=== PATIENT | male | born 1970 | race Caucasian/White ===

== ENCOUNTER 2020-10-27 18:02 | Inpatient (IN) | payer MEDICAID ==
[~2020-10-27] VITALS: Ht 167.6 cm; Wt 85.3 kg
[2020-10-27 18:15] VITALS: BP 155/95
--- NOTE | 2020-10-27 19:25 | NUR ---
SEEN AND EXAMINED BY SONU WITH ORDERS AND CARRIED OUT
--- NOTE | 2020-10-27 19:31 | NUR ---
PT W/C ASSISTED TO BED #6
--- NOTE | 2020-10-27 19:35 | NUR ---
PT. IS A 50 Y/O MALE THAT CAME INTO ED WITH C/O OF ABDOMINAL DISTENTION. PT. STATES THAT IT STARTED A WEEK AGO. DENIES N/V/D/FEVER. PT. ALSO STATES HE HAS DARK STOOLS. PT. SKIN COLOR IS JAUNDICED. PT. DENIES ANY PAIN AT THIS TIME. DENIES N/V/D; AAOX4 WITH EVEN AND STEADY GAIT; HR EVEN AND REGULAR; PT DENIES ANY FEVER, CP, SOB, OR COUGH AT THIS TIME; VSS; PATIENT POSITIONED FOR COMFORT; HOB ELEVATED; BEDRAILS UP X2; BED DOWN. ER MD MADE AWARE OF PT STATUS. PMH: DENIES ALLERGIES: NKA
--- NOTE | 2020-10-27 19:40 | NUR ---
LABS DRAWN AND HANDED TO CORTES FROM LAB
--- NOTE | 2020-10-27 19:45 | NUR ---
XRAY AT BEDSIDE
[2020-10-27 19:56] LABS: BASOPHILS % (AUTO) 0.3 % (0.0-2.0); EOSINOPHILS # (AUTO) 0.1 K/uL (0-0.4); EOSINOPHILS % (AUTO) 0.9 % (0.0-4.0); HEMATOCRIT 27.5 % (36-52); HEMOGLOBIN 9.8 g/dL (12.0-18.0); LYMPHOCYTES # (AUTO) 1.4 K/uL (2.0-11.5); LYMPHOCYTES % (AUTO) 15.9 % (20.5-51.1); MEAN CORPUSCULAR HEMOGLOBIN 41 pg (27-31); MEAN CORPUSCULAR HGB CONC 36 g/dL (33-37); MEAN CORPUSCULAR VOLUME 116.4 fL (80-94); MONOCYTES # (AUTO) 1.4 K/uL (0.8-1.0); MONOCYTES % (AUTO) 15.1 % (1.7-9.3); NEUTROPHILS # (AUTO) 6.2 K/uL (1.8-7.7); NEUTROPHILS % (AUTO) 67.8 % (42.2-75.2); PLATELET COUNT (AUTO) 147 K/uL (140-450); RED BLOOD CELL COUNT(AUTO) 2.36 MIL/uL (4.20-6.10); RED CELL DISTRIBUTION WIDTH 14.3 % (11.6-13.7); WHITE BLOOD COUNT (AUTO) 9.1 K/uL (4.8-10.8)
--- NOTE | 2020-10-27 20:00 | NUR ---
PT. ASKED TO GIVE URINE FOR SAMPLE, PT. STATES "I CAN'T GO RIGHT NOW YET. " SON AT BEDSIDE
[2020-10-27 20:09] LABS: ALBUMIN 1.9 g/dL (3.4-5.0); BILIRUBIN,DIRECT 11.7 mg/dL (0.0-0.3)
[2020-10-27 20:21] LABS: ANION GAP 11.6 (8-16); CARBON DIOXIDE 24.1 mmol/L (21-32); CREATININE 0.8 mg/dL (0.6-1.3); POTASSIUM 4.7 mmol/L (3.5-5.1)
[2020-10-27 20:24] LABS: PROTHROMBIN TIME 20.3 secs (10.8-13.4)
[2020-10-27] MEDS ORDERED: ACETAMINOPHEN 325 MG TAB PO PRN (21:00)
[2020-10-27] MEDS ORDERED: HYDROcodone/APAP 7.5/325 MG 1 TAB PO PRN (21:00)
[2020-10-27] MEDS ORDERED: ZOLPIDEM 5 MG TAB PO PRN (21:00)
[2020-10-27] MEDS ORDERED: ONDANSETRON 4 MG/2 ML VIAL IM/IVP PRN (21:00)
[2020-10-27] MEDS ORDERED: POTASSIUM CHLORIDE 10 MEQ TABER PO PRN (21:00)
[2020-10-27] MEDS ORDERED: guaiFENesin DM 200/20 MG-10 ML 10 ML UDC PO PRN (21:00)
[2020-10-27] MEDS ORDERED: NACL 3% 500 ML IV ONE (21:05)
--- NOTE | 2020-10-27 21:18 | NUR ---
Dr. Peralta examining patient.
--- NOTE | 2020-10-27 21:37 | NUR ---
ULTRASOUND AT BEDSIDE
[2020-10-27 21:56] LABS: CHOL/HDL RATIO 2.6 (1-4.5); FREE T4 (FREE THYROXINE) 1.27 ng/dL (0.76-1.46); MAGNESIUM 1.9 mg/dL (1.8-2.4); PHOSPHORUS 3.2 mg/dL (2.5-4.9); THYROID STIMULATING HORMONE 1.95 uIU/mL (0.34-3.74)
--- NOTE | 2020-10-27 22:05 | NUR ---
PT. TAKEN TO BATHROOM VIA W/C FOR URINE COLLECTION.
--- NOTE | 2020-10-27 22:05 | NUR ---
URINE COLLECTION WALKED TO LAB, HANDED TO ESA
--- NOTE | 2020-10-27 22:19 | NUR ---
TRIED TO CALL REPORT TO DILMA ORANTES (ICU). NIKITA STATES RN IN BATHROOM AT THIS TIME. TO CALL BACK IN 5 MINS.
[2020-10-27 22:27] LABS: APPEARANCE,URINE SL CLOUDY (CLEAR); BILIRUBIN,URINE 3+ (NEGATIVE); BLOOD, URINE NEGATIVE (NEGATIVE); COLOR,URINE BROWN (YELLOW); LEUKOCYTE ESTERASE ,URINE TRACE (NEGATIVE); NITRITE, URINE POSITIVE (NEGATIVE); PH,URINE 6.5 (5.0-9.0); UGLUCOSE TRACE (NEGATIVE)
--- NOTE | 2020-10-27 22:30 | NUR ---
SON (DANNA CORDERO) ASKED TO BE UPDATED REGARDING ANY CHANGES WITH FATHER. PHONE #:
--- NOTE | 2020-10-27 22:35 | NUR ---
Patient will be admitted to care of DR. ORTIZ. Admitted to ICU. PT. TAKEN TO ROOM ICU BED 5, ACCOMPANIED BY EMT AND RN. Belongings list completed. Report to DILMA ORANTES.
[2020-10-27 22:37] LABS: RBC,URINE 0-5 /HPF (0-5); WBC,URINE 0-5 /HPF (0-5)
[2020-10-27 22:39] LABS: BARBITURATE, URINE NEGATIVE ng/ml (NEG <=200); BENZODIAZEPINE, URINE NEGATIVE ng/mL (NEG <=200); CANNABINOID, URINE NEGATIVE ng/mL (NEG <=50); COCAINE, URINE NEGATIVE ng/mL (NEG <=300); OPIATE, URINE NEGATIVE ng/mL (NEG <=2000); PHENCYCLIDINE SCREEN,URINE NEGATIVE ng/mL (NEG <=25)
--- NOTE | 2020-10-27 22:40 | NUR ---
RECEIVED PT FROM ER VIA [facility].PT ABLE TO TRANSFER TO BED.PT ALERT AND ORIENTED X4.DIVEHI SPEAKING; ABLE TO UNDERSTAND SIMPLE DANISH.SR ON MONITOR.ON ROOM AIR.DENIES SOB.NO COUGHING NOTED.PERIPHERAL IV TO RT AC G18 INTACT, INFUSING NACL 3% AT 40ML/HR ORDERED.ABDOMINAL DISTENTION NOTED.ABDOMEN SOFT NON TENDER.EDEMA TO BLE FROM THIGH DOWN TO THE FEET PITTING +3.BOTH FEET DORSALIS PEDIS PULSE APPRECIATED.PENILE EDEMA ALSO NOTED.SKIN INTACT.PT DENIES PAIN
[2020-10-27 22:45] VITALS: BP 146/86
--- NOTE | 2020-10-27 23:00 | NUR ---
PTS SON JENIFFER AT BEDSIDE; UPDATED ON PTS PRESENT CONDITION.QUESTIONS ANSWERED
[2020-10-28] VITALS (17 sets, daily range): BP systolic 104–152; BP diastolic 56–96
--- NOTE | 2020-10-28 00:09 | NUR ---
LAB AT BEDSIDE. PT STILL AWAKE WATCHING TV; BOTH FEET ELEVATED WITH PILLOWS.CALL LIGHT WITHIN REACH.PT STILL DENIES PAIN
[2020-10-28 00:31] LABS: CARBON DIOXIDE 27.6 mmol/L (21-32); CREATININE 0.7 mg/dL (0.6-1.3); POTASSIUM 4.6 mmol/L (3.5-5.1)
--- NOTE | 2020-10-28 02:00 | NUR ---
PT ASLEEP;EASILY AROUSABLE.DENIES SOB.DENIES PAIN
--- NOTE | 2020-10-28 04:27 | NUR ---
PTS CONDITION REMAINS UNCHANGED.PT ABLE TO REPOSITION SELF.ASLEEP AT THIS TIME.NO S/SX OF RESPIRATORY DISTRESS.NO PAIN NOTED.WILL CONTINUE TO CLOSELY MONITOR PT
[2020-10-28 06:09] LABS: ANION GAP 9.5 (8-16); CARBON DIOXIDE 25.3 mmol/L (21-32); CREATININE 0.7 mg/dL (0.6-1.3); POTASSIUM 4.8 mmol/L (3.5-5.1)
--- NOTE | 2020-10-28 06:10 | NUR ---
PT AWAKE; VOIDED 130ML OF DARK ESTUARDO COLORED URINE.ABLE TO REPOSITION SELF.DENIES SOB.ABDOMINAL DISTENSION STILL NOTED.PT DENIES PAIN.
[2020-10-28 06:17] LABS: BASOPHILS # (AUTO) 0.1 K/uL (0.00-0.22); BASOPHILS % (AUTO) 0.6 % (0.0-2.0); EOSINOPHILS # (AUTO) 0.2 K/uL (0-0.4); EOSINOPHILS % (AUTO) 2.1 % (0.0-4.0); HEMATOCRIT 24.7 % (36-52); HEMOGLOBIN 8.8 g/dL (12.0-18.0); LYMPHOCYTES # (AUTO) 1.4 K/uL (2.0-11.5); LYMPHOCYTES % (AUTO) 14.6 % (20.5-51.1); MEAN CORPUSCULAR HEMOGLOBIN 41 pg (27-31); MEAN CORPUSCULAR HGB CONC 36 g/dL (33-37); MEAN CORPUSCULAR VOLUME 114.9 fL (80-94); MONOCYTES # (AUTO) 1.4 K/uL (0.8-1.0); NEUTROPHILS # (AUTO) 6.3 K/uL (1.8-7.7); NEUTROPHILS % (AUTO) 67.7 % (42.2-75.2); PLATELET COUNT (AUTO) 117 K/uL (140-450); RED BLOOD CELL COUNT(AUTO) 2.15 MIL/uL (4.20-6.10); RED CELL DISTRIBUTION WIDTH 14.4 % (11.6-13.7); WHITE BLOOD COUNT (AUTO) 9.4 K/uL (4.8-10.8)
--- NOTE | 2020-10-28 07:26 | NUR ---
RECEIVED CRITICAL LAB FOR SODIUM 119, NOT REPORTED, IMPROVING. PRIMARY RN CHRIS MADE AWARE.
--- NOTE | 2020-10-28 07:29 | NUR ---
RECEIVED BEDSIDE REPORT .PT SLEEPING, AROUSES TO VOICE, ORIENTED X4.SAMI SPEAKING; ABLE TO UNDERSTAND SIMPLE CZECH.SR ON MONITOR.ON ROOM AIR.DENIES SOB.NO COUGHING NOTED.PERIPHERAL IV TO RT AC G18 INTACT, INFUSING NACL 3% AT 40ML/HR ORDERED.ABDOMINAL DISTENTION NOTED.ABDOMEN SOFT NON TENDER.EDEMA TO BLE FROM THIGH DOWN TO THE FEET PITTING +3.BOTH FEET DORSALIS PEDIS PULSE APPRECIATED.PENILE EDEMA ALSO NOTED.SKIN INTACT.PT DENIES PAIN, PLAN OF CARE REVIEWED, NO IMMEDIATE NEEDS VOICED AT THIS TIME.
--- NOTE | 2020-10-28 08:15 | NUR ---
PT'S SON ZOROASTRIANISM ARRIVED TO BEDSIDE
--- NOTE | 2020-10-28 08:24 | NUR ---
PATIENT HAS BEEN SCREENED AND CATEGORIZED HIGH NUTRITION RISK. PATIENT WILL BE SEEN WITHIN 1-2 DAYS OF ADMISSION. 10/28/20-10/29/[address]
[2020-10-28] MEDS: PANTOPRAZOLE 40 MG TABEC PO SCH (09:01)
--- NOTE | 2020-10-28 09:25 | NUR ---
DR ORTIZ AT BEDSIDE, CONDITION AND PLAN OF CARE DISCUSSED WITH PT AND HIS SON
[2020-10-28] MEDS ORDERED: NACL 3% 500 ML IV SCH (10:00)
--- NOTE | 2020-10-28 12:02 | NUR ---
VOIDED IN URINAL 75ML DARK ESTUARDO
--- NOTE | 2020-10-28 12:06 | NUR ---
DR MONTANA AT BEDSIDE, 3% SODIUM DC'D PER DR MONTANA.
[2020-10-28] MEDS: ALBUMIN HUMAN 25% 100 ML IV SCH ×2 (13:10→21:19)
--- NOTE | 2020-10-28 13:11 | NUR ---
SCHEDULED ALBUMIN ADMINISTERED PER DR MONTANA ORDER, MED EDUCATION PROVIDED, REINFORCEMENT NEEDED. PATIENT IS AWAKE AND WATCHING TV ON BED. DENIED OF ANY DISTRESS. SAFETY MEASURES IN PLACE.
[2020-10-28 13:25] LABS: ANION GAP 7.1 (8-16); CARBON DIOXIDE 26.6 mmol/L (21-32); CREATININE 0.8 mg/dL (0.6-1.3); POTASSIUM 4.7 mmol/L (3.5-5.1)
--- NOTE | 2020-10-28 13:27 | NUR ---
CRITICAL LAB NA 119, STAYED THE SAME.
--- NOTE | 2020-10-28 13:35 | NUR ---
PAGED DR. KELLY FOR CRITICAL LAB. AWAITING CALL BACK. WILL CONTINUE TO MONITOR.
--- NOTE | 2020-10-28 14:12 | NUR ---
DC PLANNIN YRS OLD MALE PATIENT WAS ADMITTED FROM HOME WITH A DX OF HYPONATREMIA, ANASARCA. PT HAS NO MEDICAL HISTORY. CXR SHOWED UNDER EXPANDED LUNGS , PROBABLE RIGHT LUNG BASE ATELECTASIS RAPID COVID TEST NEGATIVE. ABDOMINAL ULTRASOUND SHOWED NODULAR HETEROGENOUS LIVER SUGGESTING CIRRHOSIS. SODIUM LEVEL 116, ADMINISTERED 3% IV AND CONTINUE HOME MEDS . CONSULTED WITH NEPHRO, AND PULMO. DC PLAN TO GO HOME WHEN STABLE. CM TO FOLLOW
--- NOTE | 2020-10-28 14:50 | NUR ---
PT C/O NAUSEA AFTER EATING LUNCH, EMESIS X1, ZOFRAN GIVEN PER PRN ORDER
--- NOTE | 2020-10-28 15:15 | NUR ---
DR NORTH AT BEDSIDE FOR EVAL, CONDITION AND PLAN OF CARE DISCUSSED WITH PT AND PT'S SON AT BEDSIDE
--- NOTE | 2020-10-28 15:20 | NUR ---
PT REPORTS NAUSEA RESOLVED AND FEEDING BETTER, WANTS TO SIT AT SIDE OF BED FOR COMFORT, ASSISTED BY HIS SON TO STAND AT BEDSIDE, PT DENIES FEEDING DIZZY OR LIGHTHEADED, STEADY ON HIS FEET, BED LINEN CHANGED, PT RETURNED TO BED WITH MINIMAL ASSIST.
[2020-10-28 16:19] LABS: BILIRUBIN,URINE 3+ (NEGATIVE); BLOOD, URINE NEGATIVE (NEGATIVE); LEUKOCYTE ESTERASE ,URINE TRACE (NEGATIVE); NITRITE, URINE POSITIVE (NEGATIVE); PH,URINE 5.5 (5.0-9.0); UGLUCOSE 1+ (NEGATIVE)
[2020-10-28 16:21] LABS: CARBON DIOXIDE 25.5 mmol/L (21-32); CREATININE 0.9 mg/dL (0.6-1.3); POTASSIUM 4.5 mmol/L (3.5-5.1)
[2020-10-28 16:24] LABS: APPEARANCE,URINE HAZY (CLEAR); COLOR,URINE AMBER (YELLOW)
--- NOTE | 2020-10-28 16:30 | NUR ---
REPEAT LAB RESULTED, NA 118, DR MONTANA NOTIFIED, NO NEW ORDERS AT THIS TIME.
[2020-10-28 16:36] LABS: RBC,URINE NONE SEEN /HPF (0-5); WBC,URINE 0-5 /HPF (0-5)
--- NOTE | 2020-10-28 18:15 | NUR ---
PT SITTING UP EATING DINNER, NO DISTRESS NOTED, DENIES ANY NEEDS.
--- NOTE | 2020-10-28 19:15 | NUR ---
received report from Kaela PERERA. pt currently a/o x 4, gcs 15. able to move all extremities freely. pt is a 50 year old male coming from home with hx of alcoholic cirrhosis for increased abdominal distention. pt is dx of hyponatremia and anasarca. currently pt denies any pain. states has not had a BM since 10/27/20. denies any pain upon palpation of ABD. abd appears and large and rounded. normoactive bowel sounds heard on all quads. currently IV in place on RAC, patent with brisk blood return. NAD at this time.
--- NOTE | 2020-10-28 19:49 | NUR ---
XR at bedside.
[2020-10-28 20:58] LABS: CREATININE,URINE RANDOM 253 mg/dL (30-125); URINE SODIUM, RANDOM 5 mmol/l (40-220)
--- NOTE | 2020-10-28 21:44 | NUR ---
NAD at this time. pt currently asleep, arousable via verbal stimuli. currently laying on left lateral position. VSS
[2020-10-28 22:24] LABS: ANION GAP 7.4 (8-16); CARBON DIOXIDE 26.1 mmol/L (21-32); CREATININE 0.9 mg/dL (0.6-1.3); POTASSIUM 4.5 mmol/L (3.5-5.1)
--- NOTE | 2020-10-28 22:57 | NUR ---
pt remains asleep this time. arousable via verbal stimuli. NAD
[2020-10-29] VITALS (16 sets, daily range): BP systolic 119–149; BP diastolic 61–100
[2020-10-29 00:29] LABS: ANION GAP 8.6 (8-16); CARBON DIOXIDE 24.8 mmol/L (21-32); CREATININE 0.8 mg/dL (0.6-1.3); POTASSIUM 4.4 mmol/L (3.5-5.1)
--- NOTE | 2020-10-29 03:15 | NUR ---
NAD at this time. pt appears calm and sleeping. visible chest rise and fall. positioned in right lateral position.
[2020-10-29 04:17] LABS: BASOPHILS # (AUTO) 0.1 K/uL (0.00-0.22); BASOPHILS % (AUTO) 1.3 % (0.0-2.0); EOSINOPHILS # (AUTO) 0.2 K/uL (0-0.4); EOSINOPHILS % (AUTO) 2.5 % (0.0-4.0); HEMATOCRIT 23.2 % (36-52); HEMOGLOBIN 8.2 g/dL (12.0-18.0); LYMPHOCYTES # (AUTO) 1.6 K/uL (2.0-11.5); LYMPHOCYTES % (AUTO) 20.6 % (20.5-51.1); MEAN CORPUSCULAR HEMOGLOBIN 41 pg (27-31); MEAN CORPUSCULAR HGB CONC 35 g/dL (33-37); MEAN CORPUSCULAR VOLUME 116.4 fL (80-94); MONOCYTES # (AUTO) 1.1 K/uL (0.8-1.0); NEUTROPHILS # (AUTO) 4.9 K/uL (1.8-7.7); NEUTROPHILS % (AUTO) 61.6 % (42.2-75.2); PLATELET COUNT (AUTO) 98 K/uL (140-450); RED BLOOD CELL COUNT(AUTO) 1.99 MIL/uL (4.20-6.10); RED CELL DISTRIBUTION WIDTH 14.7 % (11.6-13.7); WHITE BLOOD COUNT (AUTO) 7.9 K/uL (4.8-10.8)
--- NOTE | 2020-10-29 04:31 | NUR ---
offered toileting pt but refused. states no needs at this time. NAD. VSS on RA.
[2020-10-29 05:02] LABS: ANION GAP 5.5 (8-16); CARBON DIOXIDE 27.9 mmol/L (21-32); CREATININE 0.8 mg/dL (0.6-1.3); POTASSIUM 4.4 mmol/L (3.5-5.1)
[2020-10-29] MEDS: ALBUMIN HUMAN 25% 100 ML IV SCH ×2 (05:05→13:00)
[2020-10-29 08:07] LABS: T3 UPTAKE 35 % (24-39); T4 (THYROXINE) 4.9 ug/dL (4.5-12.0)
[2020-10-29 09:04] LABS: ANION GAP 7.1 (8-16); CARBON DIOXIDE 26.3 mmol/L (21-32); CREATININE 0.8 mg/dL (0.6-1.3); POTASSIUM 4.4 mmol/L (3.5-5.1)
[2020-10-29] MEDS: DOCUSATE SODIUM 100 MG GELCAP PO PRN (09:19)
[2020-10-29] MEDS: PANTOPRAZOLE 40 MG TABEC PO SCH (09:19)
[2020-10-29] MEDS ORDERED: NACL 3% 500 ML IV ONE (11:40)
[2020-10-29 13:38] LABS: ANION GAP 10.6 (8-16); CARBON DIOXIDE 23.6 mmol/L (21-32); CREATININE 0.8 mg/dL (0.6-1.3); POTASSIUM 4.2 mmol/L (3.5-5.1)
--- NOTE | 2020-10-29 15:40 | NUR ---
10/29/20 RD INITIAL ASSESSMENT COMPLETED PLEASE REFER TO NUTRITION ASSESSMENT UNDER CARE ACTIVITY FOR ESTIMATED NUTRITIONAL NEEDS. 1. CONTINUE HEPATIC DIET 40 GM PRO, 2 GM NA DIET TOLERATED. 2. PROVIDED NUTRITION EDUCATION FOR LOW SODIUM DIET. 3. RD TO FOLLOW-UP 3-5 DAYS, MODERATE RISK BLOSSOM [address]CHELL RD
[2020-10-29 17:17] LABS: ANION GAP 9.2 (8-16); CARBON DIOXIDE 25.2 mmol/L (21-32); CREATININE 0.8 mg/dL (0.6-1.3); POTASSIUM 4.4 mmol/L (3.5-5.1)
--- NOTE | 2020-10-29 19:27 | NUR ---
AWAKE ALERT FOLLOW COMMAND, REPORT GIVE TO ROXY.
--- NOTE | 2020-10-29 19:30 | NUR ---
RECEIVED PATIENT ON BED WITH HOB ELEVATED TO 30D DEGREE; AWAKE, ALERT AND ORIENTED. BREATHING EVEN AND UNLABORED ON ROOM AIR, SO2 97%. CARDIAC SCOPE SHOWS ON SINUS RHYTHM HR 98/MIN NO ARRHYTHMIAS SEEN. IVF IN PROGRESS 3% NACL AT 25 ML/HR VIA G 18 IV CANNULA ON RIGHT AC; PATENT AND INTACT. ABDOMEN IS FIRM AND DISTENDED, HYPOACTIVE BOWEL SOUNDS, JAUNDICE SKIN AND SCLERA; PITTING EDEMA 3+ ON BOTH LOWER EXTREMITIES.
[2020-10-29 20:19] LABS: ANION GAP 9.5 (8-16); CREATININE 0.8 mg/dL (0.6-1.3); POTASSIUM 4.5 mmol/L (3.5-5.1)
[2020-10-30] VITALS (21 sets, daily range): BP systolic 108–145; BP diastolic 54–85
--- NOTE | 2020-10-30 | NUR ---
SLEPT AT SHORT INTERVAL; OBSERVED AND MONITORED CLOSELY.
[2020-10-30 00:56] LABS: ANION GAP 6.5 (8-16); CARBON DIOXIDE 25.8 mmol/L (21-32); CREATININE 0.7 mg/dL (0.6-1.3); POTASSIUM 4.3 mmol/L (3.5-5.1)
[2020-10-30 04:26] LABS: ANION GAP 7.6 (8-16); CARBON DIOXIDE 25.7 mmol/L (21-32); CREATININE 0.8 mg/dL (0.6-1.3); POTASSIUM 4.3 mmol/L (3.5-5.1)
[2020-10-30 05:37] LABS: BASOPHILS # (AUTO) 0.1 K/uL (0.00-0.22); BASOPHILS % (AUTO) 0.7 % (0.0-2.0); EOSINOPHILS # (AUTO) 0.2 K/uL (0-0.4); EOSINOPHILS % (AUTO) 2.1 % (0.0-4.0); HEMATOCRIT 22.7 % (36-52); HEMOGLOBIN 8.1 g/dL (12.0-18.0); LYMPHOCYTES # (AUTO) 1.3 K/uL (2.0-11.5); LYMPHOCYTES % (AUTO) 15.8 % (20.5-51.1); MEAN CORPUSCULAR HEMOGLOBIN 41 pg (27-31); MEAN CORPUSCULAR HGB CONC 36 g/dL (33-37); MEAN CORPUSCULAR VOLUME 115.6 fL (80-94); MONOCYTES # (AUTO) 0.9 K/uL (0.8-1.0); MONOCYTES % (AUTO) 11.4 % (1.7-9.3); NEUTROPHILS # (AUTO) 5.7 K/uL (1.8-7.7); PLATELET COUNT (AUTO) 101 K/uL (140-450); RED BLOOD CELL COUNT(AUTO) 1.96 MIL/uL (4.20-6.10); RED CELL DISTRIBUTION WIDTH 14.6 % (11.6-13.7); WHITE BLOOD COUNT (AUTO) 8.2 K/uL (4.8-10.8)
[2020-10-30 06:04] LABS: PROTHROMBIN TIME 22.8 secs (10.8-13.4)
--- NOTE | 2020-10-30 06:23 | NUR ---
HAD BEDWET; KEPT CLEAN, DRY AND COMFORTABLE.
--- NOTE | 2020-10-30 06:25 | NUR ---
NO UNUSUAL COMPLAINTS IN THE NIGHT.; STILL ON 3% NACL IN PROGRESS.
--- NOTE | 2020-10-30 07:25 | NUR ---
ENDORSED TO AM SHIFT RN NADIA, FOR CONTINUITY OF CARE.
[2020-10-30] MEDS: DOCUSATE SODIUM 100 MG GELCAP PO PRN (08:28)
[2020-10-30] MEDS: PANTOPRAZOLE 40 MG TABEC PO SCH (08:28)
[2020-10-30 09:50] LABS: ANION GAP 7.3 (8-16); CARBON DIOXIDE 24.9 mmol/L (21-32); CREATININE 0.7 mg/dL (0.6-1.3); POTASSIUM 4.2 mmol/L (3.5-5.1)
--- NOTE | 2020-10-30 10:38 | NUR ---
U/S GUIDED PARACENTESIS NEEDLE INSERTED BY DR. WINSTON. TIME OUT WAS DONE BEFOR STARTED .
[2020-10-30] MEDS ORDERED: PHYTONADIONE 10 MG in NACL 0.9% 50 ML IV SCH (11:00)
--- NOTE | 2020-10-30 11:25 | NUR ---
PARACENTESIS COMPLETED 7225 MLOF FLUID REMOVED , PT AWAKE ALERT VITAL SIGN WITH IN NORMAL LIMIT.
[2020-10-30] MEDS: LACTULOSE 20 GM/30 ML UDC PO SCH ×2 (12:30→21:08)
[2020-10-30 12:50] LABS: ANION GAP 8.5 (8-16); CARBON DIOXIDE 24.5 mmol/L (21-32); CREATININE 0.9 mg/dL (0.6-1.3)
[2020-10-30] MEDS ORDERED: ALBUMIN HUMAN 5 % 250 ML IV SCH (13:00)
[2020-10-30] MEDS ORDERED: FUROSEMIDE 20 MG/2 ML VIAL IVP SCH (13:55)
[2020-10-30 15:00] LABS: ALBUMIN 2.3 g/dL (3.4-5.0); BILIRUBIN,DIRECT 6.2 mg/dL (0.0-0.3); TOTAL BILIRUBIN 11.2 mg/dL (0.0-1.0)
[2020-10-30] MEDS ORDERED: NACL 3% 500 ML IV SCH (15:20)
--- NOTE | 2020-10-30 16:20 | NUR ---
TEMP 99.8 CALLED INFORM KATELYNN BENITEZ. ORDER TO HOLD THE TRANSFUSION GIVE TYLENOL PO AND BENADYL 25 MG IV.AND RESTART WHEN TEMP DOWN TO NORMAL.
[2020-10-30 17:00] LABS: CARBON DIOXIDE 24.1 mmol/L (21-32); CREATININE 0.9 mg/dL (0.6-1.3); POTASSIUM 4.1 mmol/L (3.5-5.1)
--- NOTE | 2020-10-30 17:30 | NUR ---
PT AWAKE AND ALERT FOLLOW COMMAND. RESTART FFP DENIED PAIN.
[2020-10-30] MEDS ORDERED: diphenhydrAMINE 50 MG/ML VIAL IVP SCH (18:05)
--- NOTE | 2020-10-30 19:20 | NUR ---
COMPLETED ,NO FEVER AND NO REACTION NOTE.
--- NOTE | 2020-10-30 19:25 | NUR ---
PT AWAKE AND ALERT REPORT GIVE TO ROXY RN,
--- NOTE | 2020-10-30 19:30 | NUR ---
RECEIVED PATIENT ON BED, WATCHING TELEVISION; JUST RECEIVED 1 UNIT FFP; ALERT AND ORIENTED ABLE TO MOVE LIMBS FREELY. BREATHING EVEN AND UNLABORED, ON ROOM AIR, NO SOB NOTED. CARDIACSCOPE SHOWS ON SINUS RHYTHM, NO ARRHYTHMIAS SEEN. ABDOMEN IS SOFT BUT DISTENDED, HYPOACTIVE BOWEL SOUNDS.
[2020-10-30 19:56] LABS: APPEARANCE,UNSPUN,BODY FLUID CLOUDY (CLEAR); SPECIMENTYPE,BODY FLUID PARACENTESIS
[2020-10-30 19:57] LABS: APPEARANCE,SPUN,BODY FLUID CLEAR (CLEAR); COLOR,BODY FLUID DARK YELLOW (LT YELLOW); TOTAL VOLUME,BODY FLUID 10500 mL
[2020-10-30 19:59] LABS: GLUCOSE,BODY FLUID 112 mg/dL
[2020-10-30 20:14] LABS: RBC, BODY FLUID 9 /cu. mm.; WBC, BODY FLUID 0 /cu. mm.
[2020-10-30 21:18] LABS: ANION GAP 10.6 (8-16); CARBON DIOXIDE 24.3 mmol/L (21-32); CREATININE 0.8 mg/dL (0.6-1.3); POTASSIUM 3.9 mmol/L (3.5-5.1)
--- NOTE | 2020-10-30 22:00 | NUR ---
WITH BOUTS OF DIARRHEA; KEPT CLEAN DRY AND COMFORTABLE.
[2020-10-31] VITALS (14 sets, daily range): BP systolic 99–128; BP diastolic 45–89
--- NOTE | 2020-10-31 04:30 | NUR ---
HAD BM AGAIN TO SOFT LOOSE STOOL; KEPT CLEAN DRY AND COMFORTABLE.
[2020-10-31 06:06] LABS: BASOPHILS # (AUTO) 0.1 K/uL (0.00-0.22); EOSINOPHILS # (AUTO) 0.1 K/uL (0-0.4); EOSINOPHILS % (AUTO) 1.2 % (0.0-4.0); HEMATOCRIT 23.4 % (36-52); HEMOGLOBIN 8.2 g/dL (12.0-18.0); LYMPHOCYTES # (AUTO) 1.5 K/uL (2.0-11.5); LYMPHOCYTES % (AUTO) 17.1 % (20.5-51.1); MEAN CORPUSCULAR HEMOGLOBIN 42 pg (27-31); MEAN CORPUSCULAR HGB CONC 35 g/dL (33-37); MONOCYTES # (AUTO) 0.9 K/uL (0.8-1.0); MONOCYTES % (AUTO) 9.6 % (1.7-9.3); NEUTROPHILS # (AUTO) 6.4 K/uL (1.8-7.7); NEUTROPHILS % (AUTO) 71.1 % (42.2-75.2); PLATELET COUNT (AUTO) 103 K/uL (140-450); RED BLOOD CELL COUNT(AUTO) 1.98 MIL/uL (4.20-6.10); RED CELL DISTRIBUTION WIDTH 14.6 % (11.6-13.7)
[2020-10-31 06:19] LABS: ANION GAP 14.8 (8-16); CARBON DIOXIDE 23.1 mmol/L (21-32); CREATININE 0.9 mg/dL (0.6-1.3); POTASSIUM 3.9 mmol/L (3.5-5.1)
[2020-10-31 06:21] LABS: MAGNESIUM 1.9 mg/dL (1.8-2.4); PHOSPHORUS 2.9 mg/dL (2.5-4.9)
--- NOTE | 2020-10-31 07:15 | NUR ---
BEDSIDE REPORT RECEIVED FROM CEMENT BLOCK MAKER NURSE YUE RAMSEY SLEEPING QUIETLY IN NO ACUTE DISTRESS, AROUSES EASILY TO VOICE, REPORTS NO PAIN OR DISCOMFORT, RESP EVEN UNLABORED ON RA, SKIN WARM DRY JAUNDICE, CAP REFILL <3, PIV TO LEFT HAND 3% SODIUM CHLORIDE INFUSING AT 25ML/HR, SITE WNL, ABD SOFT, LESS DISTENDED, BS + X4Q, MOVES ALL EXT, PLAN OF CARE REVIEWED AND DISCUSSED, ALL SAFETY MEASURES IN PLACE.
--- NOTE | 2020-10-31 07:22 | NUR ---
ENDORSED TO AM SHIFT RN FOR CONTINUITY OF CARE.
--- NOTE | 2020-10-31 08:15 | NUR ---
3% SODIUM CHLORIDE INFUSION STOPPED PER ORDER
--- NOTE | 2020-10-31 08:50 | NUR ---
DR PACE AT BEDSIDE
--- NOTE | 2020-10-31 08:55 | NUR ---
DR MONTANA AT BEDSIDE
[2020-10-31] MEDS: LACTULOSE 20 GM/30 ML UDC PO SCH ×2 (09:00→20:33)
[2020-10-31] MEDS: PANTOPRAZOLE 40 MG TABEC PO SCH (09:03)
[2020-10-31] MEDS: THIAMINE 100 MG TAB PO SCH (09:03)
[2020-10-31] MEDS: MULTIVIT/MIN/CA/FE/FA 1 TAB PO SCH (09:04)
[2020-10-31] MEDS: FOLIC ACID 1 MG TAB PO SCH (09:04)
--- NOTE | 2020-10-31 09:15 | NUR ---
AM MEDS GIVEN, PT EM PILLS WHOLE, REFUSED LACTULOSE FOR DIARRHEA, PT SITTING UP NOW FOR BREAKFAST
[2020-10-31 10:39] LABS: CARBON DIOXIDE 23.8 mmol/L (21-32); CREATININE 0.8 mg/dL (0.6-1.3); POTASSIUM 3.8 mmol/L (3.5-5.1)
--- NOTE | 2020-10-31 12:25 | NUR ---
PT SITTING UP EATING LUNCH, TALKING ON THE PHONE
[2020-10-31] MEDS: ALBUMIN HUMAN 25% 100 ML IV SCH ×2 (13:03→20:33)
[2020-10-31] MEDS ORDERED: FUROSEMIDE 20 MG/2 ML VIAL IVP SCH (15:00)
[2020-10-31] MEDS ORDERED: SPIRONOLACTONE 50 MG TAB PO SCH (15:00)
--- NOTE | 2020-10-31 18:22 | NUR ---
TRANSFER PT FROM ICU TO BED 111A,PATIENT ALERT ORIENTED, ON ROOM AIR, ABLE TO AMBULATE FROM BED TO WHEELCHAIR,PATIENT EATING AT THIS TIME,ORIENT TO ROOM, CALL LIGHT WITHIN EASY REACH,DINNER SERVED, NOTED LOWER EXTREMITIES EDEMATOUS, NOTED SOME DRYNESS ON BOTH ELBOWS AND KNEES,SCRATCH BRYSON ON RIGHT BUTTOCKS, SON AT BEDSIDE AT THIS TIME.
--- NOTE | 2020-10-31 18:42 | NUR ---
REPORT RECEIVED FROM RADHA PERERA
--- NOTE | 2020-10-31 19:24 | NUR ---
PT ENDORSED TO CREDIT OPERATIONS SPECIALIST RN, PT IS STABLE
--- NOTE | 2020-10-31 19:30 | NUR ---
RECIEVED BEDSIDE ENDORSEMENT FROM DAY SHIFT RN, PT LYING IN BED RESTING W/ SON AT BEDSIDE, A&0X4, ABLE TO MAKE NEEDS KNOWN AND FOLLOWS COMMANDS, AFEBRILE, VSS, SKIN WARM DRY AND INTACT, ABD SOFT AND NON TENDER TO TOUCH, LW 18 G PIV SALINE LOCKED PATENT INTACT AND FLUSHED, PT CONTINENT, ABLE TO AMBULATE AND USE BEDSIDE URINAL, PT SHOWING NO SIGNS OF ACUTE DISTRESS, SAFETY MEASURES IN PLACE, WILL CONTINUE WITH CURRENT POC
--- NOTE | 2020-10-31 20:35 | NUR ---
ADMINISTERED 2100H MEDICATIONS PER MD ORDERS
[2020-11-01] VITALS: BP 118/68
--- NOTE | 2020-11-01 00:23 | NUR ---
PT APPEARS TO BE ASLEEP AND SHOWING NO SIGNS OF ACUTE DISTRESS
--- NOTE | 2020-11-01 03:20 | NUR ---
PT APPEARS TO E ASLEEP AND SHOWING NO SIGNS OF ACUTE DISTRESS
[2020-11-01 04:00] VITALS: BP 117/69
[2020-11-01] MEDS: ALBUMIN HUMAN 25% 100 ML IV SCH ×2 (04:26→12:25)
--- NOTE | 2020-11-01 04:26 | NUR ---
ADMINISTERED 0500H MEDICATION PER MD ORDERS
[2020-11-01 07:13] LABS: BASOPHILS # (AUTO) 0.1 K/uL (0.00-0.22); BASOPHILS % (AUTO) 0.7 % (0.0-2.0); EOSINOPHILS # (AUTO) 0.1 K/uL (0-0.4); EOSINOPHILS % (AUTO) 1.9 % (0.0-4.0); HEMATOCRIT 21.3 % (36-52); HEMOGLOBIN 7.6 g/dL (12.0-18.0); LYMPHOCYTES # (AUTO) 1.7 K/uL (2.0-11.5); LYMPHOCYTES % (AUTO) 21.5 % (20.5-51.1); MEAN CORPUSCULAR HEMOGLOBIN 42 pg (27-31); MEAN CORPUSCULAR HGB CONC 36 g/dL (33-37); MONOCYTES # (AUTO) 0.7 K/uL (0.8-1.0); MONOCYTES % (AUTO) 8.6 % (1.7-9.3); NEUTROPHILS # (AUTO) 5.4 K/uL (1.8-7.7); NEUTROPHILS % (AUTO) 67.3 % (42.2-75.2); PLATELET COUNT (AUTO) 94 K/uL (140-450); RED BLOOD CELL COUNT(AUTO) 1.82 MIL/uL (4.20-6.10); RED CELL DISTRIBUTION WIDTH 15.1 % (11.6-13.7)
[2020-11-01 07:14] LABS: ANION GAP 10.1 (8-16); CARBON DIOXIDE 26.9 mmol/L (21-32); CREATININE 0.7 mg/dL (0.6-1.3)
[2020-11-01 07:27] LABS: MAGNESIUM 1.8 mg/dL (1.8-2.4); PHOSPHORUS 3.5 mg/dL (2.5-4.9)
--- NOTE | 2020-11-01 07:31 | NUR ---
ENDORSED TO DAY SHIFT RN FOR CONTINUITY OF CARE
--- NOTE | 2020-11-01 07:32 | NUR ---
RECEIVED BEDSIDE ENDORSEMENT FROM STAGE PRODUCER RN FOR CONTINUITY OF CARE. PT IS A&0X4, ABLE TO MAKE NEEDS KNOWN AND FOLLOWS COMMANDS, AFEBRILE, VSS, SKIN WARM DRY AND INTACT, ABD SOFT AND NON TENDER TO TOUCH, LW 18 G IV INFUSING TKO. INTACT AND PATENT, PT CONTINENT, ABLE TO AMBULATE AND USE BEDSIDE URINAL, PT SHOWING NO SIGNS OF ACUTE DISTRESS. PLAN OF CARE DISCUSSED. SAFETY MEASURES IN PLACE, CALL LIGHT WITHIN REACH. WILL CONTINUE TO MONITOR.
[2020-11-01 08:00] VITALS: BP 120/76
[2020-11-01] MEDS: LACTULOSE 20 GM/30 ML UDC PO SCH ×2 (08:50→21:54)
[2020-11-01] MEDS: PANTOPRAZOLE 40 MG TABEC PO SCH (08:50)
[2020-11-01] MEDS: MULTIVIT/MIN/CA/FE/FA 1 TAB PO SCH (08:50)
[2020-11-01] MEDS: THIAMINE 100 MG TAB PO SCH (08:50)
[2020-11-01] MEDS: SPIRONOLACTONE 50 MG TAB PO SCH (08:51)
[2020-11-01] MEDS: FOLIC ACID 1 MG TAB PO SCH (08:51)
--- NOTE | 2020-11-01 08:56 | NUR ---
ALL SCHEDULED MEDICATIONS GIVEN. PT IS STABLE. NO DISTRESS NOTED. WILL CONTINUE TO MONITOR.
--- NOTE | 2020-11-01 11:10 | NUR ---
CHECKED ON PATIENT. PT IS STABLE. DENIES PAIN AND NO S/S OF DISTRESS NOTED. WILL CONTINUE TO MONITOR.
[2020-11-01 12:00] VITALS: BP 120/63
--- NOTE | 2020-11-01 14:00 | NUR ---
ALL SCHEDULED MEDICATIONS GIVEN. PT IS STABLE. NO DISTRESS NOTED. WILL CONTINUE TO MONITOR.
[2020-11-01 16:00] VITALS: BP 120/63
--- NOTE | 2020-11-01 17:00 | NUR ---
CHECKED ON PATIENT. PATIENT IS STABLE. NO DISTRESS NOTED. WILL CONTINUE TO MONITOR.
--- NOTE | 2020-11-01 19:30 | NUR ---
RECEIVED PT ON BED, AAOX4, ABLE TO MAKE NEEDS KNOWN, DENIES ANY PAIN, ABDOMEN DISTENDED BUT SOFT, POSITIVE BOWEL SOUNDS, PT JAUNDICE DUE TO LIVER CIRRHOSIS, PLAN OF CARE DISCUSSED, SAFETY MEASURES IN PLACE, CALL LIGHT WITHIN REACH.
--- NOTE | 2020-11-01 19:33 | NUR ---
ENDORSED TO TRACKMOBILE OPERATOR NURSE FOR CONTINUITY OF CARE. PT IS STABLE.
[2020-11-01 20:00] VITALS: BP 114/68
[2020-11-01] MEDS: FUROSEMIDE 20 MG/2 ML VIAL IVP SCH (21:55)
--- NOTE | 2020-11-01 22:00 | NUR ---
DUE MEDS ADMINISTERED WITH EDUCATION PROVIDED, ALL NEEDS ATTENDED.
--- NOTE | 2020-11-02 01:30 | NUR ---
ROUNDS MADE, SEEN PT SLEEPING, NO SIGNS OF DISTRESS, CONTINUE TO MONITOR CLOSELY.
[2020-11-02 04:00] VITALS: BP 115/63
--- NOTE | 2020-11-02 04:00 | NUR ---
PT SLEEPING, EASILY AROUSABLE, DENIES ANY PAIN AND NO SOB NOTED, MONITORED CLOSELY.
--- NOTE | 2020-11-02 07:29 | NUR ---
PT AWAKE, NO SIGNS OF DISTRESS, REPORT GIVEN TO DILMA ORTIZ FOR CONTINUITY OF CARE.
--- NOTE | 2020-11-02 07:30 | NUR ---
RECEIVED BEDSIDE ENDORSEMENT FROM PORCELAIN ENAMEL REPAIRER RN FOR CONTINUITY OF CARE. PT IS A&0X4, ABLE TO MAKE NEEDS KNOWN AND FOLLOWS COMMANDS, AFEBRILE, VSS, SKIN WARM DRY AND INTACT, ABD SOFT AND NON TENDER TO TOUCH, LW 18 G IV INFUSING TKO. INTACT AND PATENT, PT CONTINENT, ABLE TO AMBULATE AND USE BEDSIDE URINAL, PT SHOWING NO SIGNS OF ACUTE DISTRESS. PLAN OF CARE DISCUSSED. SAFETY MEASURES IN PLACE, CALL LIGHT WITHIN REACH. WILL CONTINUE TO MONITOR.
[2020-11-02 07:56] LABS: BASOPHILS # (AUTO) 0.1 K/uL (0.00-0.22); BASOPHILS % (AUTO) 0.9 % (0.0-2.0); CARBON DIOXIDE 26.7 mmol/L (21-32); CREATININE 0.7 mg/dL (0.6-1.3); EOSINOPHILS # (AUTO) 0.1 K/uL (0-0.4); EOSINOPHILS % (AUTO) 1.5 % (0.0-4.0); HEMATOCRIT 22.8 % (36-52); LYMPHOCYTES # (AUTO) 1.3 K/uL (2.0-11.5); MEAN CORPUSCULAR HEMOGLOBIN 42 pg (27-31); MEAN CORPUSCULAR HGB CONC 35 g/dL (33-37); MEAN CORPUSCULAR VOLUME 118.3 fL (80-94); MONOCYTES # (AUTO) 0.8 K/uL (0.8-1.0); MONOCYTES % (AUTO) 9.3 % (1.7-9.3); NEUTROPHILS # (AUTO) 6.1 K/uL (1.8-7.7); NEUTROPHILS % (AUTO) 72.3 % (42.2-75.2); PLATELET COUNT (AUTO) 103 K/uL (140-450); POTASSIUM 3.7 mmol/L (3.5-5.1); RED BLOOD CELL COUNT(AUTO) 1.93 MIL/uL (4.20-6.10); RED CELL DISTRIBUTION WIDTH 15.2 % (11.6-13.7); WHITE BLOOD COUNT (AUTO) 8.4 K/uL (4.8-10.8)
[2020-11-02 08:00] VITALS: BP 111/64
[2020-11-02] MEDS: SPIRONOLACTONE 50 MG TAB PO SCH (08:47)
[2020-11-02] MEDS: LACTULOSE 20 GM/30 ML UDC PO SCH (08:53)
[2020-11-02] MEDS: PANTOPRAZOLE 40 MG TABEC PO SCH (08:53)
[2020-11-02] MEDS: THIAMINE 100 MG TAB PO SCH (08:54)
[2020-11-02] MEDS: FUROSEMIDE 20 MG/2 ML VIAL IVP SCH (08:54)
[2020-11-02] MEDS: FOLIC ACID 1 MG TAB PO SCH (08:54)
[2020-11-02] MEDS: MULTIVIT/MIN/CA/FE/FA 1 TAB PO SCH (08:58)
--- NOTE | 2020-11-02 09:05 | NUR ---
ALL SCHEDULED MEDS GIVEN. PT IS STABLE. NO DISTRESS NOTED. DENIES PAIN. WILL CONTINUE TO MONITOR.
--- NOTE | 2020-11-02 12:00 | NUR ---
DR. GAN AT PATIENT'S BEDSIDE DISCUSSING EGD PROCEDURE FOR TOMORROW. MD DISCUSSED RISKS AND BENEFITS OF THE PROCEDURE. PT VERBALIZED UNDERSTANDING. WITNESSED PATIENT AND MD SIGNING CONSENT FORM FOR EGD PROCEDURE.
[2020-11-02] MEDS ORDERED: FOLI1TAB90 PO (13:08)
[2020-11-02] MEDS ORDERED: LACT10SO11 PO (13:08)
[2020-11-02] MEDS ORDERED: THIA-34 PO (13:08)
[2020-11-02] MEDS ORDERED: FURO-572 PO (13:08)
[2020-11-02] MEDS ORDERED: PANT40EC56 PO (13:08)
[2020-11-02] MEDS ORDERED: SPIR50TA PO (13:08)
--- NOTE | 2020-11-02 13:19 | NUR ---
RECEIVED NEW ORDERS OF DISCHARGE. WILL ENDORSE DISCHARGE INSTRUCTIONS TO PATIENT.
[2020-11-02 13:25] VITALS: BP 111/64
--- NOTE | 2020-11-02 15:20 | NUR ---
ENDORSED DISCHARGE INSTRUCTIONS TO PATIENT. PATIENT VERBALIZED UNDERSTANDING AND SIGNED THE DISCHARGE FORMS.
--- NOTE | 2020-11-02 16:20 | NUR ---
PATIENT DISCHARGED OFF THE UNIT. FAMILY PICKED UP PATIENT AT THE FRONT LOBBY. IV CATH AND ID BAND REMOVED. PT WAS STABLE PRIOR TO DISCHARGE.
[2020-11-03 21:28] LABS: ALBUMIN,BODY FLUID 0.6 g/dL
== END 2020-11-02 16:20 | disposition home or self-care (01) | DRG 280 ==
LOC: MED 18:02 → MIC 21:29 → MTU 10-31 18:19
PROVIDERS: ADMIT Family Medicine; ATTEND Family Medicine
PROC: 0W9G3ZZ Drainage of Peritoneal Cavity, Percutaneous Approach (ICD-10-PCS; principal; 2020-10-30)
PROC: 30233K1 Transfusion of Nonautologous Frozen Plasma into Peripheral Vein, Percutaneous Approach (ICD-10-PCS; 2020-10-30)
DX: K70.31 Alcoholic cirrhosis of liver with ascites (principal); E43 Unspecified severe protein-calorie malnutrition; G93.41 Metabolic encephalopathy; D68.4 Acquired coagulation factor deficiency; D69.6 Thrombocytopenia, unspecified; K76.81 Hepatopulmonary syndrome; E87.8 Other disorders of electrolyte and fluid balance, not elsewhere classified; E83.51 Hypocalcemia; E87.1 Hypo-osmolality and hyponatremia; D64.9 Anemia, unspecified; F10.10 Alcohol abuse, uncomplicated; N39.0 Urinary tract infection, site not specified; E88.09 Other disorders of plasma-protein metabolism, not elsewhere classified; Y90.9 Presence of alcohol in blood, level not specified; J98.11 Atelectasis; Z82.49 Family history of ischemic heart disease and other diseases of the circulatory system; Z68.30 Body mass index [BMI] 30.0-30.9, adult
CPT/HCPCS: 36415; 49083; 71045; 76700; 80048; 80076; 80305; 81001; 82140; 82150; 82272; 82570; 82945; 83036; 83615; 83690; 83735; 83880; 83935; 84100; 84155; 84157; 84300; 84436; 84439; 84443; 84479; 84484; 85025; 85610; 85730; 86886; 86900; 86901; 87070; 87075; 87081; 87086; 87205; 89051; 99291; J1200; J1940; J2001; J2405; J3430; J3490; P9017; P9041; P9046

== ENCOUNTER 2020-11-23 17:52 | Inpatient (IN) | payer MEDICAID ==
[~2020-11-23] VITALS: Ht 162.6 cm; Wt 72.6 kg
[~2020-11-23 17:52] MED LIST: FOLI1TAB90 PO; FURO-572 PO; LACT10SO11 PO; PANT40EC56 PO; SPIR50TA PO; THIA-34 PO
[2020-11-23 17:56] VITALS: BP 137/95
[2020-11-23] MEDS ORDERED: FUROSEMIDE 40 MG/4 ML VIAL IVP ONE (18:20)
--- NOTE | 2020-11-23 18:23 | NUR ---
50/M BIB SON WITH C/O SOB AND ADBOMINAL DISTENTION AND GENITAL SWELLING X1 MONTH. STATES HE WAS SEEN HERE ONE MONTH AGO AND HAD ABD DRAINED, STATES SYMPTOMS ARE REOCCURING. DENIES CP, N/V, FEVER, CHILLS. +DIARRHEA -BLOOD. PATIENT HAS 3+ PITTING EDEMA TO HAL LOWER EXT, +GROIN. A&O X4, RR EVEN AND UNLABORED. PLACED ON MONITOR. MEDHX: LIVER CIRRHOSIS ALLERGIES: DENIES
--- NOTE | 2020-11-23 18:38 | NUR ---
LAB SAMPLES COLLECTED VIA IV, WALKED TO LAB.
[2020-11-23 19:09] LABS: BASOPHILS # (AUTO) 0.1 K/uL (0.00-0.22); BASOPHILS % (AUTO) 0.7 % (0.0-2.0); EOSINOPHILS # (AUTO) 0.1 K/uL (0-0.4); EOSINOPHILS % (AUTO) 0.9 % (0.0-4.0); HEMATOCRIT 30.9 % (36-52); HEMOGLOBIN 10.8 g/dL (12.0-18.0); LYMPHOCYTES # (AUTO) 1.3 K/uL (2.0-11.5); LYMPHOCYTES % (AUTO) 19.1 % (20.5-51.1); MEAN CORPUSCULAR HEMOGLOBIN 40 pg (27-31); MEAN CORPUSCULAR HGB CONC 35 g/dL (33-37); MEAN CORPUSCULAR VOLUME 112.5 fL (80-94); MONOCYTES # (AUTO) 0.5 K/uL (0.8-1.0); MONOCYTES % (AUTO) 7.4 % (1.7-9.3); NEUTROPHILS % (AUTO) 71.9 % (42.2-75.2); PLATELET COUNT (AUTO) 134 K/uL (140-450); RED BLOOD CELL COUNT(AUTO) 2.75 MIL/uL (4.20-6.10); RED CELL DISTRIBUTION WIDTH 15.1 % (11.6-13.7); WHITE BLOOD COUNT (AUTO) 6.9 K/uL (4.8-10.8)
--- NOTE | 2020-11-23 19:12 | NUR ---
REPORT RECEIVED FROM DILMA SALVADOR FOR CONTINUATION OF PATIENT CARE AT THIS TIME.
--- NOTE | 2020-11-23 19:12 | NUR ---
REPORT AND CONTINUATION OF CARE GIVEN TO DILMA FAY.
[2020-11-23 19:16] LABS: ANION GAP 9.7 (8-16); CARBON DIOXIDE 25.6 mmol/L (21-32); POTASSIUM 4.3 mmol/L (3.5-5.1)
[2020-11-23 19:22] LABS: ALBUMIN 2.4 g/dL (3.4-5.0); BILIRUBIN,DIRECT 5.5 mg/dL (0.0-0.3); TOTAL BILIRUBIN 10.4 mg/dL (0.0-1.0)
--- NOTE | 2020-11-23 19:48 | NUR ---
PATIENT LAYING IN BED LOCKED IN LOWEST POSITION X1 SIDE RAIL UP. PATIENT AOX4, GCS 15. PATIENT REPORTS SLIGHT SOB, LUNG SOUNDS CLEAR THROUGHOUT. DENIES CP. PATIENT REPORTS 5/10 SCROTUM PAIN D/T SWELLING. ERMD MADE AWARE. PATIENT ALSO REPORTS URINARY BURNING, RETENTION AND FREQUENCY X2 WEEKS. PATIENT CONNECTED TO MONITOR W VSS. SON AT BEDSIDE.
[2020-11-23] MEDS ORDERED: MORPHINE SULFATE 2 MG/ML SYR IVP PRN (20:40)
[2020-11-23] MEDS ORDERED: DOCUSATE SODIUM 100 MG GELCAP PO PRN (20:40)
[2020-11-23] MEDS ORDERED: ONDANSETRON 4 MG/2 ML VIAL IM/IVP PRN (20:40)
[2020-11-23] MEDS ORDERED: MAGNESIUM OXIDE 400 MG TAB PO PRN (20:40)
[2020-11-23] MEDS ORDERED: ACETAMINOPHEN 325 MG TAB PO PRN (20:40)
[2020-11-23] MEDS ORDERED: SODIUM PHOS / POTASSIUM PHOS 1 PKT PDR PO PRN (20:40)
[2020-11-23] MEDS ORDERED: HYDROcodone/APAP 5/325 MG 1 TAB TAB PO PRN (20:40)
[2020-11-23] MEDS ORDERED: HYDROmorphone 1 MG/ML AMP IVP ONE (20:45)
[2020-11-23] MEDS ORDERED: FUROSEMIDE 40 MG/4 ML VIAL IVP SCH (20:46)
[2020-11-23 21:02] LABS: MAGNESIUM 1.9 mg/dL (1.8-2.4); PHOSPHORUS 3.5 mg/dL (2.5-4.9)
--- NOTE | 2020-11-23 21:40 | NUR ---
US AT BEDSIDE.
[2020-11-23] MEDS: LACTULOSE 20 GM/30 ML UDC PO SCH (21:48)
[2020-11-23] MEDS: NACL 0.9% 1,000 ML IV SCH (21:50)
--- NOTE | 2020-11-23 23:05 | NUR ---
PATIENT LAYING IN BED SUPINE, W EYES CLOSED. BED LOCKED IN LOWEST POSITION. X2 SIDERAILS UP FOR PATIENT SAFETY. BREATHING EVEN AND UNLABORED. CONNECTED TO MONITOR W VSS. 0.9 NS FLUIDS RUNNING AT 10ML/HR. NAD NOTED. WILL CONTINUE TO MONITOR.
--- NOTE | 2020-11-24 01:30 | NUR ---
PATIENT LAYING IN BED L LATERAL POSITION, W EYES CLOSED. BED LOCKED IN LOWEST POSITION. X2 SIDERAILS UP FOR PATIENT SAFETY. BREATHING EVEN AND UNLABORED. CONNECTED TO MONITOR W VSS. 0.9 NS FLUIDS RUNNING AT 10ML/HR. NAD NOTED. WILL CONTINUE TO MONITOR.
--- NOTE | 2020-11-24 03:30 | NUR ---
PATIENT LAYING IN BED L LATERAL POSITION, W EYES CLOSED. BED LOCKED IN LOWEST POSITION. X2 SIDERAILS UP FOR PATIENT SAFETY. BREATHING EVEN AND UNLABORED. CONNECTED TO MONITOR W VSS. 0.9 NS FLUIDS RUNNING AT 10ML/HR W 936ML VTBI. NAD NOTED. WILL CONTINUE TO MONITOR.
--- NOTE | 2020-11-24 05:50 | NUR ---
PATIENT REPORTS 5/10 SCROTUM PAIN UPON MOVEMENT ONLY, DOES NOT WANT PAIN MEDICATION AT THIS TIME. PATIENT REPORTS SOME IMPROVEMENT OF SOB, REPORTS HE FEELS BETTER THAN WHEN HE INITIALLY CAME IN TO ED. PATIENT LAYING IN BED L LATERAL POSITION, AWAKE, HOB ELEVATED. BED LOCKED IN LOWEST POSITION. X1 SIDERAIL UP. BREATHING EVEN AND UNLABORED. CONNECTED TO MONITOR W VSS.
[2020-11-24 06:56] LABS: BASOPHILS # (AUTO) 0.1 K/uL (0.00-0.22); BASOPHILS % (AUTO) 1.3 % (0.0-2.0); EOSINOPHILS # (AUTO) 0.1 K/uL (0-0.4); EOSINOPHILS % (AUTO) 1.6 % (0.0-4.0); HEMATOCRIT 28.1 % (36-52); HEMOGLOBIN 9.8 g/dL (12.0-18.0); LYMPHOCYTES # (AUTO) 1.5 K/uL (2.0-11.5); LYMPHOCYTES % (AUTO) 22.3 % (20.5-51.1); MEAN CORPUSCULAR HEMOGLOBIN 40 pg (27-31); MEAN CORPUSCULAR HGB CONC 35 g/dL (33-37); MEAN CORPUSCULAR VOLUME 113.3 fL (80-94); MONOCYTES # (AUTO) 0.5 K/uL (0.8-1.0); NEUTROPHILS # (AUTO) 4.4 K/uL (1.8-7.7); NEUTROPHILS % (AUTO) 66.8 % (42.2-75.2); PLATELET COUNT (AUTO) 112 K/uL (140-450); RED BLOOD CELL COUNT(AUTO) 2.48 MIL/uL (4.20-6.10); RED CELL DISTRIBUTION WIDTH 15.1 % (11.6-13.7); WHITE BLOOD COUNT (AUTO) 6.6 K/uL (4.8-10.8)
--- NOTE | 2020-11-24 07:13 | NUR ---
Pt report given to DILMA BLAIR . Transfer of care at this time.
[2020-11-24 07:16] LABS: CARBON DIOXIDE 28.2 mmol/L (21-32); CREATININE 0.9 mg/dL (0.6-1.3); POTASSIUM 4.2 mmol/L (3.5-5.1)
--- NOTE | 2020-11-24 07:22 | NUR ---
RECIEVED REPORT FROM DILMA ESCUDERO. TRANSFER OF CARE RECIEVED
--- NOTE | 2020-11-24 08:28 | NUR ---
ADMITTING MD BEDSIDE EVALUATING PT
[2020-11-24] MEDS ORDERED: WATER STERILE 10 ML MC ONE (08:59)
[2020-11-24] MEDS ORDERED: FUROSEMIDE 40 MG/4 ML VIAL IVP SCH (09:00)
[2020-11-24] MEDS: LACTULOSE 20 GM/30 ML UDC PO SCH ×2 (09:08→21:56)
[2020-11-24] MEDS: SPIRONOLACTONE 50 MG TAB PO SCH (09:08)
[2020-11-24] MEDS: PANTOPRAZOLE 40 MG INJ VIAL IVP SCH (09:08)
--- NOTE | 2020-11-24 09:09 | NUR ---
PT CURRENTLY RESTING BEDSIDE WITH EYES OPEN. DENIES ANY PAIN AT THIS MOMENT. PT ON CRIME VICTIM SPECIALIST AND VITAL SIGNS STABLE. WILL CONTINUE TO MONITOR
--- NOTE | 2020-11-24 10:38 | NUR ---
PT RESTING IN BED WITH EYES CLOSED. PT STATED GUSTAFSON 12/05 IN GROIN AREA. BED IN LOWEST POSITION WITH SIDERAIL X1 UP. VITAL SIGNS STABLE. PT ON TRIM MASTER OPERATOR. WILL CONTINUE TO MONITOR
--- NOTE | 2020-11-24 11:46 | NUR ---
DR. SEGUNDO BEDSIDE EVALUATING PT
--- NOTE | 2020-11-24 12:12 | NUR ---
PT PROVIDED WITH LUNCH TRAY
[2020-11-24 13:38] LABS: PROTHROMBIN TIME 23.8 secs (10.8-13.4)
--- NOTE | 2020-11-24 15:05 | NUR ---
PT CURRENTLY RESTING WITH EYES OPEN BEDSIDE AND LIGHTS OFF. BED IN LOWEST POSITION WITH SIDERAIL X1 UP. BED IN LOWEST POSITION. VITAL SIGNS STABLE. WILL CONTINUE TO MONITOR
--- NOTE | 2020-11-24 17:49 | NUR ---
Patient will be admitted to care of DR. MARTITA SEGUNDO. Admited to TELE. Will go to room 110B. Belongings list completed. Report to DILMA BLOUNT.
--- NOTE | 2020-11-24 18:08 | NUR ---
PT WAS BROUGHT IN ON GURNEY FROM THE ED IN STABLE CONDITION. PT ABLE TO AMBULATE FROM THE GURNEY TO THE BED. PT ABD IS NOTABLY DISTENDED, AND JAUNDICE NOTED THROUGHOUT SKIN AND EYES. PT HAS A LEFT AC 20G RUNNING 5ML FOR TKO. PT IS ON ROOM AIR WITH CHEST RISING AND FALLING AND NO SOB NOTED. LUNG SOUNDS HAVE CRACKLES. PT VITAL SIGNS: 98, 132/68, 98%, 18, 98.1. PT REPORTS TOLERABLE PAIN IN SCROTUM AREA. PT SKIN INTACT. ALERT AND ORIENTED X4. EDUCATION PROVIDED REGARDING HOSPITAL ENVIRONMENT, CALL LIGHT, PLAN OF CARE, AND ANSWERED ALL OF PTS QUESTIONS. ALL SAFETY MEASURES IN PLACE, CALL LIGHT WITHIN REACH. WILL CONTINUE TO MONITOR.
--- NOTE | 2020-11-24 19:16 | NUR ---
PT ENDORSED TO WIRING MECHANIC NURSE FOR CONTINUITY OF CARE, PT IS STABLE.
[2020-11-24 20:00] VITALS: BP 135/84
[2020-11-24] MEDS: NACL 0.9% 1,000 ML IV SCH (21:55)
[2020-11-24] MEDS: FUROSEMIDE 40 MG/4 ML VIAL IVP SCH (21:56)
[2020-11-25 00:10] VITALS: BP 117/84
--- NOTE | 2020-11-25 06:17 | NUR ---
FROM 4AM TO 730AM SEE PAPERCHART DOCUMENTATION. SEDRICK TAVERAS RN
[2020-11-25 07:02] LABS: BASOPHILS # (AUTO) 0.1 K/uL (0.00-0.22); BASOPHILS % (AUTO) 1.1 % (0.0-2.0); EOSINOPHILS # (AUTO) 0.1 K/uL (0-0.4); EOSINOPHILS % (AUTO) 1.8 % (0.0-4.0); HEMATOCRIT 26.3 % (36-52); HEMOGLOBIN 9.2 g/dL (12.0-18.0); LYMPHOCYTES # (AUTO) 1.3 K/uL (2.0-11.5); LYMPHOCYTES % (AUTO) 18.9 % (20.5-51.1); MEAN CORPUSCULAR HEMOGLOBIN 39 pg (27-31); MEAN CORPUSCULAR HGB CONC 35 g/dL (33-37); MEAN CORPUSCULAR VOLUME 111.4 fL (80-94); MONOCYTES # (AUTO) 0.6 K/uL (0.8-1.0); MONOCYTES % (AUTO) 8.3 % (1.7-9.3); NEUTROPHILS # (AUTO) 4.9 K/uL (1.8-7.7); NEUTROPHILS % (AUTO) 69.9 % (42.2-75.2); PLATELET COUNT (AUTO) 96 K/uL (140-450); RED BLOOD CELL COUNT(AUTO) 2.36 MIL/uL (4.20-6.10); RED CELL DISTRIBUTION WIDTH 14.8 % (11.6-13.7)
[2020-11-25 07:10] LABS: ANION GAP 11.8 (8-16); CARBON DIOXIDE 27.3 mmol/L (21-32); POTASSIUM 3.1 mmol/L (3.5-5.1)
--- NOTE | 2020-11-25 07:23 | NUR ---
HANDOFF WITH DILMA PRADO. SEDRICK TAVERAS RN
--- NOTE | 2020-11-25 07:27 | NUR ---
RECEIVED REPORT FROM AIR TESTER NURSE AT BEDSIDE FOR CONTINUITY OF CARE. REVIEWED AND WILL CONTINUE WITH POC. PT IS ASLEEP WITH NO SIGNS OF DISTRESS OR PAIN. PT IS ON RA WITH NORMAL, UNLABORED BREATHING. PT HAS PATENT LAC 20G IV RUNNING FLUIDS PER MD ORDER. NIGHT NURSE REPORTS PT IS AA&OX4 AND AMBULATORY WHEN AWAKE, WILL VERIFY WHEN PT IS AWAKE. NIGHT NURSE REPORTS PT WAS GIVEN FRESH FROZEN PLASMA LAST NIGHT AND TOLERATED WELL. WILL MONITOR PLT AND OTHER LABS.
[2020-11-25 08:00] VITALS: BP 130/95
[2020-11-25] MEDS: PANTOPRAZOLE 40 MG INJ VIAL IVP SCH (08:24)
[2020-11-25] MEDS: TAMSULOSIN 0.4 MG CAP PO SCH (08:25)
[2020-11-25] MEDS: FUROSEMIDE 40 MG/4 ML VIAL IVP SCH ×2 (08:25→21:56)
[2020-11-25] MEDS: LACTULOSE 20 GM/30 ML UDC PO SCH ×2 (08:25→21:50)
[2020-11-25] MEDS: SPIRONOLACTONE 50 MG TAB PO SCH ×2 (08:25→21:50)
--- NOTE | 2020-11-25 08:34 | NUR ---
ADMINISTERED SCHEDULED MEDICATIONS. GAVE MEDIATION EDUCATION AND PT VERBALIZED UNDERSTANDING. PT TOLERATED MEDICATIONS WELL. WILL CONTINUE TO MONITOR.
--- NOTE | 2020-11-25 08:46 | NUR ---
ADMINISTERED SCHEDULED MEDICATIONS. PT REFUSED COLACE, PT STATES SHE HAS HAD FREQ AND NORMAL STOOLS. PT TOLERATED OTHER MEDICATIONS WELL.
--- NOTE | 2020-11-25 09:15 | NUR ---
PATIENT HAS BEEN SCREENED AND CATEGORIZED LOW NUTRITION RISK. PATIENT WILL BE SEEN WITHIN 7 DAYS OF ADMISSION. 11/30/[address]
[2020-11-25] MEDS: POTASSIUM CHLORIDE 10 MEQ TABER PO PRN (09:26)
--- NOTE | 2020-11-25 09:26 | NUR ---
PT POTASSIUM LEVEL 3.1. ADMINISTERED POTASSIUM CHLORIDE PRN FOR POTASSIUM LEVEL BELOW 3.5. EDUCATED PT REGARDING MEDICATION ADMINISTRATION AND PT VERBALIZED UNDERSTANDING. WILL CONTINUE TO MONITOR LAB VALUES.
[2020-11-25 10:33] LABS: PROTHROMBIN TIME 19.5 secs (10.8-13.4)
--- NOTE | 2020-11-25 11:30 | NUR ---
PERFORMED FREQ ROUNDS. PT CONDITION IS STABLE AND WATCHING TELEVISION. PT DENIES ANY PAIN AT THIS TIME.
[2020-11-25 12:00] VITALS: BP 132/80
[2020-11-25] MEDS ORDERED: Z-GUARD PASTE TP SCH (13:30)
--- NOTE | 2020-11-25 13:30 | NUR ---
PERFORMED FREQ ROUNDING. PT ABDOMEN IS RIGID FROM ASCITES BUT PT DENIES PAIN. PT HAS IVF RUNNING PER MD ORDER WILL CONTINUE TO ASSESS. PT COMPLAINS OF GROIN DISCOMFORT DESCRIBES IT RASH LIKE PAIN. PUT IN AN ORDER FOR Z-GUARD TO APPLY.
--- NOTE | 2020-11-25 14:00 | NUR ---
APPLIED Z-GUARD FOR PT DISCOMFORT IN GROIN AREA. WILL CONTINUE TO MONITOR.
--- NOTE | 2020-11-25 15:30 | NUR ---
PERFORMED FREQ CHECKS. PT WAS ON THE PHONE BUT DENIES PAIN AT THIS TIME. WILL CONTINUE TO MONITOR.
[2020-11-25 16:00] VITALS: BP 129/75
--- NOTE | 2020-11-25 17:24 | NUR ---
PERFORMED FREQ ROUNDING. PT IS TAKING A NAP. PT DOES NOT APPEAR TO BE IN PAIN OR DISTRESS AT THE MOMENT. WILL CONTINUE TO PERFORM FREQ CHECKS.
--- NOTE | 2020-11-25 19:22 | NUR ---
GAVE CHANGE OF SHIFT REPORT TO NIGHT NURSE AT BEDSIDE FOR CONTINUITY OF CARE. DISCUSSED POC. CONDITION IS STABLE AND PT AWAKE EATING DINNER DURING BEDSIDE REPORT.
--- NOTE | 2020-11-25 19:23 | NUR ---
RECD. RESTING IN BED, AWAKE, A/OX4. RESPIRATION EVEN AND UNLABORED. IV SALINE LOCK AT THE LEFT AC, PATENT AND INTACT. ABDOMEN DISTENDED WITH EDEMA ON BILATERAL LOWER EXTREMITIES 2+. ADVISED TO MAINTAINED ELEVATED ON PILLOWS. ON IV AND PO LASIX. MEDICATIONS FOR THE NIGHT DISCUSSED WITH PATIENT. VERBALIZED UNDERSTANDING. DENIES PAIN 0/10.
[2020-11-25] MEDS: NACL 0.9% 1,000 ML IV SCH (20:40)
--- NOTE | 2020-11-25 21:50 | NUR ---
ADMINISTERED SCHEDULED MEDICATIONS FOR THE NIGHT.
[2020-11-26] VITALS: BP 131/96
--- NOTE | 2020-11-26 | NUR ---
SLEEPING COMFORTABLY IN BED.
--- NOTE | 2020-11-26 03:00 | NUR ---
ON HIS RIGHT SIDE, SLEEPING COMFORTABLY. RESPIRATION EVEN AND UNLABORED.
--- NOTE | 2020-11-26 06:00 | NUR ---
ABLE TO SLEEP WELL. CONDITION REMAIN STABLE.
[2020-11-26 06:58] LABS: BASOPHILS # (AUTO) 0.1 K/uL (0.00-0.22); BASOPHILS % (AUTO) 0.9 % (0.0-2.0); EOSINOPHILS # (AUTO) 0.1 K/uL (0-0.4); EOSINOPHILS % (AUTO) 2.2 % (0.0-4.0); HEMATOCRIT 26.7 % (36-52); HEMOGLOBIN 9.3 g/dL (12.0-18.0); LYMPHOCYTES # (AUTO) 1.7 K/uL (2.0-11.5); LYMPHOCYTES % (AUTO) 27.8 % (20.5-51.1); MEAN CORPUSCULAR HEMOGLOBIN 39 pg (27-31); MEAN CORPUSCULAR HGB CONC 35 g/dL (33-37); MEAN CORPUSCULAR VOLUME 111.9 fL (80-94); MONOCYTES # (AUTO) 0.6 K/uL (0.8-1.0); MONOCYTES % (AUTO) 9.3 % (1.7-9.3); NEUTROPHILS # (AUTO) 3.7 K/uL (1.8-7.7); NEUTROPHILS % (AUTO) 59.8 % (42.2-75.2); PLATELET COUNT (AUTO) 90 K/uL (140-450); RED BLOOD CELL COUNT(AUTO) 2.38 MIL/uL (4.20-6.10); RED CELL DISTRIBUTION WIDTH 14.7 % (11.6-13.7); WHITE BLOOD COUNT (AUTO) 6.1 K/uL (4.8-10.8)
[2020-11-26 07:01] LABS: ANION GAP 9.9 (8-16); CARBON DIOXIDE 28.4 mmol/L (21-32); CREATININE 0.9 mg/dL (0.6-1.3); POTASSIUM 3.3 mmol/L (3.5-5.1)
--- NOTE | 2020-11-26 07:25 | NUR ---
ENDORSED TO AM SHIFT NURSE FOR CONTINUITY OF CARE.
--- NOTE | 2020-11-26 07:26 | NUR ---
RECEIVED REPORT FROM ELECTRICAL CONTROLS ASSEMBLER NURSE FOR CONTINUITY OF CARE, POC DISCUSSED. PT IS RESTING IN BED WITH NO ACUTE S/S OF DISTRESS, ON RA WITH CHEST RISING AND FALLING EVEN AND UNLABORED. PT HAS A LEFT AC 20 GAUGE RUNNING 10 ML. PT DENIES PAIN AT THIS TIME. ALL SAFETY MEASURES IN PLACE, CALL LIGHT WITHIN REACH. WILL CONTINUE TO MONITOR.
[2020-11-26 08:00] VITALS: BP 108/75
[2020-11-26] MEDS: SPIRONOLACTONE 50 MG TAB PO SCH ×2 (09:01→21:31)
[2020-11-26] MEDS: TAMSULOSIN 0.4 MG CAP PO SCH (09:02)
[2020-11-26] MEDS: FUROSEMIDE 40 MG/4 ML VIAL IVP SCH ×2 (09:02→21:00)
[2020-11-26] MEDS: PANTOPRAZOLE 40 MG INJ VIAL IVP SCH (09:02)
[2020-11-26] MEDS: LACTULOSE 20 GM/30 ML UDC PO SCH ×2 (09:02→21:31)
--- NOTE | 2020-11-26 09:21 | NUR ---
RASHEED MEDICATION ADMINISTER PER MD ORDER, PT TOLERATED ADMINISTRATION. PT EDUCATION PROVIDED AND PT VERBALIZED UNDERSTANDING. PT IV IS PATENT AND INTACT. PT REPORTS ALL OTHER NEEDS ARE MET AT THIS TIME. ALL SAFETY MEASURES IN PLACE, CALL LIGHT WITHIN REACH. WILL CONTINUE TO MONITOR.
--- NOTE | 2020-11-26 10:28 | NUR ---
PT PROVIDED WITH NEW SHEETS, ELYSIA AND GOWN. PT VERBALIZED ALL OTHER NEEDS ARE MET AT THIS TIME. CALL LIGHT WITHIN REACH. WILL CONTINUE TO MONITOR.
[2020-11-26 11:45] LABS: PROTHROMBIN TIME 22.5 secs (10.8-13.4)
[2020-11-26] MEDS: POTASSIUM CHLORIDE 10 MEQ TABER PO PRN (13:00)
--- NOTE | 2020-11-26 15:28 | NUR ---
DC PLANING PATIENT IS A 50 YEAR OLD MALE ADMITTED ON 11/23/20 DUE TO ABDOMINAL DISTENTION AND GENITAL SWELLING. SW MET WITH PATIENT AT BEDSIDE TO DISCUSS AND GATHER HIS COLLATERAL INFORMATION. PATIENT REPORTED LIVING IN AN APARTMENT COMPLEX IN THE SECOND FLOOR WITH NEW ADDRESS [address] [place], [place] [phone] AND NEW CELL PHONE NUMBER . PATIENT REPORTED LIVING AT APARTMENT ONLY WITH SON JENIFFER AND HIS PARTNER. PATIENT REPORTED NOT HAVING ADVANCE DIRECTIVES AND REQUESTED INFORMATION PACKET PROVIDED BY SW. PATIENT STATED THAT HE HAS APPLIED FOR MEDICAL AND JUST GOT IT APPROVED. PATIENT STATED THAT HE HAD NO PCP AT THIS TIME AND ACCEPTED RESOURCES PROVIDED BY [facility] TO LIST OF CLINICS AND DOCTORS IN THE AREA WELL SUBSTANCE ABUSE PROGRAMS LIST. PATIENT STATED THAT HE HAS NO DME AT HOME AND REPORTED NOT HAVING ANY ISSUES WITH GETTING OR TAKING HIS MEDICATIONS WHEN PRESCRIBED. PATIENT REPORTED THAT HIS SON WILL BE ABLE TO ASSIST HIM WITH TRANSPORTATION BACK TO HOME AFTER HIS DC FROM [facility].
[2020-11-26] MEDS ORDERED: ALBUMIN HUMAN 5 % 250 ML IV SCH (15:40)
[2020-11-26] MEDS ORDERED: ALBUMIN HUMAN 5 % 250 ML IV ONE (15:50)
--- NOTE | 2020-11-26 16:33 | NUR ---
AT ROUGHLY 1520, MD ARRIVED TO PERFORM PARACENTESIS ON PT. CONSENT WAS SIGNED AND OBTAINED. TIME OUT WAS COMPLETED. MD INJECTED LIDOCAINE INTO PT ABD, MADE MINIMAL INCISION AND INSERTED CATH. PT TOLERATED PROCEDURE. MD THEN EXPLAINED HOW TO INSERT NEEDLE INTO THE BOTTLES AND CLAMP THE CATH. MD THEN ASKED TO GET ORDERS PLACED FOR THE MICROBIOLOGY ON THE FLUID. WHEN MD STARTED TO EXIT, CONCERNS WAS VOICED REGARDING NEVER PREFORMING THIS PROCEDURE AND NOT FEELING COMFORTABLE. MD WENT OVER STEPS AGAIN, STATING TO CONTINUE FILLING UP THE BOTTOMS THEN PULL THE CATH, APPLY PRESSURE WITH GAUZE, AND BANDAIDE. NO NUMBER OF BOTTLES TO STOP AT STATED. REITERATED DIRECTIONS TO MD AND MD VERBALIZED "YES, IT DOES NOT TAKE SKILLS TO PERFORM". MD LEFT, CHARGE NURSE WAS IMMEDIATELY CALLED. CHARGE CAME IN AND CALLED ATTENDING MD. ATTENDING MD AND MEDICAL STUDENT CAME TO ROOM. MD ADJUSTED CATH IN PTS ABD TO CONTINUE FILLING UP BOTTLES. MD THEN LEFT ROOM WHILE BOTTLES CONTINUED TO BE FILLED. MEDICAL STUDENTS CAME BACK IN AFTER 6 BOTTLES AND ASKED CHARGE NURSE FOR MORE BOTTLES. CHARGE NURSE CAME IN WITH 3 MORE BOTTLES. ONCE 3 MORE BOTTLES WERE FILLED, CHARGE NURSE CAME BACK IN WITH 2 MORE AND AT BEDSIDE. 11L FILLED FROM PARACENTESIS. CHARGE NURSE THEN CALLED ATTENDING MD TO PULL CATH. UPON MD FINDING OUT THAT 11L WERE REMOVED, MD ORDERED A STAT ALBUMIN TO BE HUNG STATING [address]L [address] WAY TO MUCH AND IT CAN CAUSE A SHIFT. VITAL SIGNS OBTAINED; 98/56 HR 99. 15 MINUTES LATER BP WAS 98/56 HR 98. AT 1630 BP WAS 102/58 HR 98. Addendum: 11/26/20 at 1633 by Tessa Flores RN PT REMAINED STABLE DURING PROCEDURE, AND REPORTS PAIN TOLERABLE.
--- NOTE | 2020-11-26 17:38 | NUR ---
ALBUMIN FINISHING UP RUNNING, PT IS STABLE; VITAL SIGNS STABLE. ALL SAFETY MEASURES IN PLACE. CALL LIGHT WITHIN REACH. WILL CONTINUE TO MONITOR.
[2020-11-26 18:16] LABS: APPEARANCE,SPUN,BODY FLUID CLEAR (CLEAR); APPEARANCE,UNSPUN,BODY FLUID CLEAR (CLEAR); SPECIMENTYPE,BODY FLUID PARACENTESIS
[2020-11-26 18:17] LABS: COLOR,BODY FLUID YELLOW (LT YELLOW)
[2020-11-26 18:19] LABS: TOTAL VOLUME,BODY FLUID 11155 mL
[2020-11-26 18:41] LABS: GLUCOSE,BODY FLUID 143 mg/dL
--- NOTE | 2020-11-26 19:24 | NUR ---
PT ENDORSED TO BINDER AND WRAPPER PACKER NURSE FOR CONTINUITY OF CARE, POC DISCUSSED.
--- NOTE | 2020-11-26 19:24 | NUR ---
RECD. RESTING IN BED AWAKE, A/OX4. RESPIRATION EVEN AND UNLABORED. IV GOT PULLED OUT. WILL INSERT NEW IV LINE. RIGHT FOOT WITH REDNESS AND DEFORMED TOES. MEDICATIONS FOR THE SHIFT DISCUSSED WITH PATIENT. VERBALIZED UNDERSTANDING. DENIES PAIN O/10 THIS TIME, STATED PAIN ONLY DURING AMBULATION. Addendum: 11/27/20 at 0434 by Katheryn Phillips LVN CORRECTION:THIS CHARTING IS NOT FOR THIS PATIENT.
--- NOTE | 2020-11-26 19:25 | NUR ---
RECD. RESTING IN BED, AWAKE, A/OX4. RESPIRATION EVEN AND UNLABORED. IV OF NS INFUSING AT 10 ML/HR, LEFT AC G20. PARACENTESIS SITE IN THE LEFT ABDOMEN, COVERED WITH DRESSING DRY AND INTACT. ABDOMEN SOFTER THAN YESTERDAY. ABLE TO AMBULATE TO THE BR. DENIES PAIN 0/10.
[2020-11-26 19:49] LABS: RBC, BODY FLUID 9 /cu. mm.; WBC, BODY FLUID 5 /cu. mm.
[2020-11-26 19:52] LABS: ALBUMIN,BODY FLUID 0.5 g/dL
--- NOTE | 2020-11-26 19:53 | NUR ---
PT WAS SEEN AND ASSESSED. PT ON 2L NASAL CANNULA. SPO2 93%. NO RESPIRATORY DISTRESS NOTED AT THIS TIME. WILL CONTINUE TO MONITOR PT.
[2020-11-26 20:00] VITALS: BP 101/47
[2020-11-26] MEDS: NACL 0.9% 1,000 ML IV SCH (20:40)
--- NOTE | 2020-11-26 21:31 | NUR ---
SCHEDULED MEDICATIONS GIVEN. TEACHINGS GIVEN ON THE BAD EFFECTS OF ALCOHOL AND TOTAL ABSTINENCE FROM IT GIVEN. VERBALIZED UNDERSTANDING.
--- NOTE | 2020-11-26 22:00 | NUR ---
REVIEWED AND DISCUSSED PLAN OF CARE AND WILL CONTINUE WITH PLAN OF CARE.
--- NOTE | 2020-11-27 | NUR ---
SLEEPING COMFORTABLY IN BED.
--- NOTE | 2020-11-27 02:00 | NUR ---
WARM BLANKETS GIVEN REQUESTED.
[2020-11-27 04:00] VITALS: BP 107/63
--- NOTE | 2020-11-27 04:00 | NUR ---
IN BED ASLEEP, RESPIRATION EVEN AND UNLABORED.
--- NOTE | 2020-11-27 07:20 | NUR ---
RECEIVED REPORT FROM RECREATIONAL FACILITIES MOTEL MANAGER NURSE FOR CONTINUITY OF CARE, POC DISCUSSED. PT IS RESTING IN BED WITH NO ACUTE S/S OF DISTRESS, ON RA WITH CHEST RISING AND FALLING EVEN AND UNLABORED. PT HAS A LEFT AC 20 GAUGE RUNNING 10 ML. PT DENIES PAIN AT THIS TIME. ALL SAFETY MEASURES IN PLACE, CALL LIGHT WITHIN REACH.
[2020-11-27 07:21] LABS: BASOPHILS % (AUTO) 0.7 % (0.0-2.0); EOSINOPHILS # (AUTO) 0.1 K/uL (0-0.4); EOSINOPHILS % (AUTO) 1.7 % (0.0-4.0); HEMATOCRIT 26.1 % (36-52); HEMOGLOBIN 9.1 g/dL (12.0-18.0); LYMPHOCYTES # (AUTO) 1.9 K/uL (2.0-11.5); LYMPHOCYTES % (AUTO) 31.1 % (20.5-51.1); MEAN CORPUSCULAR HEMOGLOBIN 39 pg (27-31); MEAN CORPUSCULAR HGB CONC 35 g/dL (33-37); MEAN CORPUSCULAR VOLUME 111.6 fL (80-94); MONOCYTES # (AUTO) 0.5 K/uL (0.8-1.0); MONOCYTES % (AUTO) 8.8 % (1.7-9.3); NEUTROPHILS # (AUTO) 3.5 K/uL (1.8-7.7); NEUTROPHILS % (AUTO) 57.7 % (42.2-75.2); PLATELET COUNT (AUTO) 83 K/uL (140-450); RED BLOOD CELL COUNT(AUTO) 2.34 MIL/uL (4.20-6.10); RED CELL DISTRIBUTION WIDTH 14.8 % (11.6-13.7); WHITE BLOOD COUNT (AUTO) 6.1 K/uL (4.8-10.8)
[2020-11-27 07:25] LABS: ANION GAP 7.9 (8-16); CARBON DIOXIDE 27.7 mmol/L (21-32); CREATININE 0.8 mg/dL (0.6-1.3); POTASSIUM 3.6 mmol/L (3.5-5.1)
--- NOTE | 2020-11-27 07:30 | NUR ---
CONDITION REMAIN STABLE. ABLE TO SLEEP WELL. ENDORSED TO AM SHIFT NURSE FOR CONTINUITY OF CARE.
[2020-11-27] MEDS ORDERED: FURO-570 PO (08:16)
[2020-11-27] MEDS ORDERED: SPIR50TA PO ×3 (08:16→14:13)
[2020-11-27] MEDS: FUROSEMIDE 40 MG/4 ML VIAL IVP SCH (08:59)
[2020-11-27] MEDS: TAMSULOSIN 0.4 MG CAP PO SCH (08:59)
[2020-11-27] MEDS: PANTOPRAZOLE 40 MG INJ VIAL IVP SCH (08:59)
--- NOTE | 2020-11-27 08:59 | NUR ---
PT BLAYING ON BED, CHESTER COMPLAINS, EATING HIS BREAKFAST. MORNING MEDICATION GOT ADMINISTRATED ORDER PT TOLERATED MEDS WELL, NO COMPLAIN. ALL SAFETY MEASURES ON PLACE, CALLS LIGHT WITHIN REACH
[2020-11-27] MEDS: LACTULOSE 20 GM/30 ML UDC PO SCH (09:00)
[2020-11-27] MEDS: SPIRONOLACTONE 50 MG TAB PO SCH (09:00)
--- NOTE | 2020-11-27 10:38 | NUR ---
PT IS STABLE WITH NO COMPLAINTS, ALL SAFETY MEASURES IN PLACE. CALL LIGHT WITHIN REACH WILL CONTINUE TO MONITOR.
[2020-11-27 12:00] VITALS: BP 116/67
--- NOTE | 2020-11-27 12:35 | NUR ---
PT IS STABLE WITH NO COMPLAINTS, ALL SAFETY MEASURES IN PLACE. CALL LIGHT WITHIN REACH
[2020-11-27 14:02] VITALS: BP 116/67
--- NOTE | 2020-11-27 14:26 | NUR ---
PT IS STABLE WITH NO COMPLAINTS, ALL SAFETY MEASURES IN PLACE. CALL LIGHT WITHIN REACH
--- NOTE | 2020-11-27 16:05 | NUR ---
PT STABLE NO COMPLAINS, GOT DISCHARGE PACKET AND EDUCATION PT VERBALIZE UNDERSTANDING. IV REMOVED, SKIN INTACT, ID BAND REMOVED. PT WALKED ON A WHEEL CHAIR TO THE FRONT LOBBY.
== END 2020-11-27 16:00 | disposition home or self-care (01) | DRG 280 ==
LOC: MED 17:52 → MTU 20:05
PROVIDERS: ADMIT Hospitalist; ATTEND Hospitalist
PROC: 30233K1 Transfusion of Nonautologous Frozen Plasma into Peripheral Vein, Percutaneous Approach (ICD-10-PCS; 2020-11-24)
PROC: 0W9G3ZZ Drainage of Peritoneal Cavity, Percutaneous Approach (ICD-10-PCS; principal; 2020-11-27)
DX: K70.31 Alcoholic cirrhosis of liver with ascites (principal); G93.41 Metabolic encephalopathy; E43 Unspecified severe protein-calorie malnutrition; D69.6 Thrombocytopenia, unspecified; D68.2 Hereditary deficiency of other clotting factors; E87.1 Hypo-osmolality and hyponatremia; E87.8 Other disorders of electrolyte and fluid balance, not elsewhere classified; N47.1 Phimosis; E87.6 Hypokalemia; D53.9 Nutritional anemia, unspecified; Z79.899 Other long term (current) drug therapy; Z81.1 Family history of alcohol abuse and dependence; Z82.49 Family history of ischemic heart disease and other diseases of the circulatory system; Z68.27 Body mass index [BMI] 27.0-27.9, adult; D50.9 Iron deficiency anemia, unspecified
CPT/HCPCS: 36415; 71045; 76705; 76770; 80048; 80076; 82945; 83690; 83735; 84100; 84157; 85025; 85610; 85730; 86886; 86900; 86901; 87081; 89051; 96361; 96374; 96375; 99285; C9113; J1170; J1940; P9017; P9041; Q0092

== ENCOUNTER 2020-12-23 08:13 | Inpatient (IN) | payer MEDICAID ==
[~2020-12-23] VITALS: Ht 167.6 cm; Wt 65.8 kg
[~2020-12-23 08:13] MED LIST changes: +FURO-570 PO; -FURO-572 PO
[2020-12-23 08:21] VITALS: BP 120/85
--- NOTE | 2020-12-23 08:48 | NUR ---
50 Y MALE FROM HOME DUE TO C/O ABDOMINAL DISTENTION AND PRESSURE RESULTING IN SOB. PT STATED THE DISCOMFORT STARTED X4 DAYS. UPON ASSESSMENT PT HAS OBIVIOUS SIGNS OF ABDOMINAL DISTENTION. STOMACH IS ROUND AND FIRM TO TOUCH. BREATH SOUNDS HEARD BILATERALLY. SLIGHT WHEEZING HEARD IN BILATERAL LOWER LOBES. S1/S2 HEARD. LAST BM 12/23/20. PMH: CIRRHOSIS NKA
--- NOTE | 2020-12-23 09:05 | NUR ---
DR. BROWNLEE BEDSIDE EVALUATING PT
--- NOTE | 2020-12-23 09:17 | NUR ---
XRAY BEDSIDE WITH PT
--- NOTE | 2020-12-23 09:40 | NUR ---
20G IV ESTABLISHED TO LEFT AC, LABS DRAWN AND WALKED TO LAB.
--- NOTE | 2020-12-23 09:50 | NUR ---
GERMÁN SWAB COLLECTED AND WALKED TO LAB
[2020-12-23 10:45] LABS: PROTHROMBIN TIME 20.6 secs (10.8-13.4)
[2020-12-23 10:49] LABS: BASOPHILS % (AUTO) 0.7 % (0.0-2.0); EOSINOPHILS % (AUTO) 0.3 % (0.0-4.0); HEMATOCRIT 27.5 % (36-52); HEMOGLOBIN 9.8 g/dL (12.0-18.0); LYMPHOCYTES # (AUTO) 0.8 K/uL (2.0-11.5); LYMPHOCYTES % (AUTO) 16.5 % (20.5-51.1); MEAN CORPUSCULAR HEMOGLOBIN 38 pg (27-31); MEAN CORPUSCULAR HGB CONC 36 g/dL (33-37); MEAN CORPUSCULAR VOLUME 106.8 fL (80-94); MONOCYTES # (AUTO) 0.4 K/uL (0.8-1.0); MONOCYTES % (AUTO) 8.2 % (1.7-9.3); NEUTROPHILS # (AUTO) 3.5 K/uL (1.8-7.7); NEUTROPHILS % (AUTO) 74.3 % (42.2-75.2); PLATELET COUNT (AUTO) 125 K/uL (140-450); RED BLOOD CELL COUNT(AUTO) 2.58 MIL/uL (4.20-6.10); RED CELL DISTRIBUTION WIDTH 15.2 % (11.6-13.7); WHITE BLOOD COUNT (AUTO) 4.8 K/uL (4.8-10.8)
--- NOTE | 2020-12-23 10:52 | NUR ---
pt provided with warm blanket and cup of water bedside
[2020-12-23 10:57] LABS: ALBUMIN 2.1 g/dL (3.4-5.0); ANION GAP 9.4 (8-16); CARBON DIOXIDE 25.1 mmol/L (21-32); CREATININE 0.9 mg/dL (0.6-1.3); POTASSIUM 4.5 mmol/L (3.5-5.1); TOTAL BILIRUBIN 7.1 mg/dL (0.0-1.0)
--- NOTE | 2020-12-23 12:00 | NUR ---
Patient being evaluated by at bedside.
--- NOTE | 2020-12-23 12:03 | NUR ---
Patient appears to be resting comfortably in bed with lights on and eyes open. Vital Signs within normal limits and charted. Respirations even and unlabored. Will continue to monitor pt
[2020-12-23] MEDS ORDERED: ONDANSETRON 4 MG/2 ML VIAL IM/IVP PRN (12:20)
[2020-12-23] MEDS ORDERED: guaiFENesin DM 200/20 MG-10 ML 10 ML UDC PO PRN (12:20)
[2020-12-23] MEDS ORDERED: POTASSIUM CHLORIDE 10 MEQ TABER PO PRN (12:20)
[2020-12-23] MEDS ORDERED: ZOLPIDEM 5 MG TAB PO PRN (12:20)
[2020-12-23] MEDS ORDERED: DOCUSATE SODIUM 100 MG GELCAP PO PRN (12:20)
[2020-12-23] MEDS ORDERED: NACL 3% 500 ML IV SCH (13:00)
--- NOTE | 2020-12-23 13:07 | NUR ---
Patient will be admitted to care of DR. ORTIZ. Admited to MED-SURG. Will go to room 119B. Belongings list completed. Report to DILMA NELSON.
[2020-12-23 13:32] LABS: CHOL/HDL RATIO 2.5 (1-4.5); FREE T4 (FREE THYROXINE) 1.54 ng/dL (0.76-1.46); MAGNESIUM 1.8 mg/dL (1.8-2.4); PHOSPHORUS 3.1 mg/dL (2.5-4.9); THYROID STIMULATING HORMONE 1.52 uIU/mL (0.34-3.74)
[2020-12-23] MEDS: SODIUM CHLORIDE 1 GM TAB PO SCH ×2 (14:54→18:29)
[2020-12-23 15:59] LABS: BILIRUBIN,URINE 2+ (NEGATIVE); BLOOD, URINE NEGATIVE (NEGATIVE); COLOR,URINE YELLOW (YELLOW); LEUKOCYTE ESTERASE ,URINE NEGATIVE (NEGATIVE); NITRITE, URINE POSITIVE (NEGATIVE); PH,URINE 5.5 (5.0-9.0); UGLUCOSE TRACE (NEGATIVE)
--- NOTE | 2020-12-23 15:59 | NUR ---
Patient arrived on unit in wheeled chair. Vitals stable, denies pain. Breathing is easy on room air. Jaundiced sclera on bilateral eyes noted. Neck veins flat. Lung sounds coarse throughout but has no cough. Abdomen distended, pulses palpable in bilateral feet. Safety measures in place and patient remains in bed with no further needs.
[2020-12-23 16:00] VITALS: BP 119/76
[2020-12-23 16:01] LABS: APPEARANCE,URINE HAZY (CLEAR)
[2020-12-23 16:12] LABS: BARBITURATE, URINE NEGATIVE ng/ml (NEG <=200); BENZODIAZEPINE, URINE NEGATIVE ng/mL (NEG <=200); CANNABINOID, URINE NEGATIVE ng/mL (NEG <=50); COCAINE, URINE NEGATIVE ng/mL (NEG <=300); OPIATE, URINE NEGATIVE ng/mL (NEG <=2000); PHENCYCLIDINE SCREEN,URINE NEGATIVE ng/mL (NEG <=25)
[2020-12-23] MEDS: SPIRONOLACTONE 50 MG TAB PO SCH (18:29)
[2020-12-23] MEDS: FUROSEMIDE 40 MG TAB PO SCH (20:26)
[2020-12-23] MEDS: HYDROcodone/APAP 7.5/325 MG 1 TAB PO PRN (20:27)
[2020-12-23 20:47] VITALS: BP 130/70
[2020-12-24] VITALS: BP 129/68
--- NOTE | 2020-12-24 00:01 | NUR ---
I RECEIVED PT IN BED ALERT ORIENTED X4 , SOMALI SPEAKING ,ON RA CLEAR LUNGS , SKIN INTACT , SHE IS ON IVF SITE INACT , ABDOMEN IS DISTENDED AND C/O PAIN AND LACK OF SLEEO NORCO AND AMBIEN GIVEN .
[2020-12-24] MEDS: HYDROcodone/APAP 7.5/325 MG 1 TAB PO PRN (01:49)
[2020-12-24 04:00] VITALS: BP 130/70
--- NOTE | 2020-12-24 05:08 | NUR ---
PT SLEPT WELL AFTER CONTROLLING HIS PAIN , VSS ,AM CARE GIVEN LINEN CHANGED
[2020-12-24 05:52] LABS: BASOPHILS % (AUTO) 0.6 % (0.0-2.0); EOSINOPHILS # (AUTO) 0.1 K/uL (0-0.4); EOSINOPHILS % (AUTO) 0.9 % (0.0-4.0); HEMATOCRIT 25.1 % (36-52); LYMPHOCYTES # (AUTO) 1.7 K/uL (2.0-11.5); LYMPHOCYTES % (AUTO) 23.6 % (20.5-51.1); MEAN CORPUSCULAR HEMOGLOBIN 38 pg (27-31); MEAN CORPUSCULAR HGB CONC 36 g/dL (33-37); MEAN CORPUSCULAR VOLUME 106.8 fL (80-94); MONOCYTES # (AUTO) 0.6 K/uL (0.8-1.0); MONOCYTES % (AUTO) 8.7 % (1.7-9.3); NEUTROPHILS # (AUTO) 4.7 K/uL (1.8-7.7); NEUTROPHILS % (AUTO) 66.2 % (42.2-75.2); PLATELET COUNT (AUTO) 105 K/uL (140-450); RED BLOOD CELL COUNT(AUTO) 2.35 MIL/uL (4.20-6.10); RED CELL DISTRIBUTION WIDTH 15.5 % (11.6-13.7); WHITE BLOOD COUNT (AUTO) 7.1 K/uL (4.8-10.8)
[2020-12-24 05:53] LABS: ANION GAP 8.7 (8-16); CARBON DIOXIDE 23.9 mmol/L (21-32); CREATININE 0.8 mg/dL (0.6-1.3); POTASSIUM 4.6 mmol/L (3.5-5.1)
--- NOTE | 2020-12-24 06:41 | NUR ---
PTS NA 119 KARIME WAS TEXED BUT HE HAS NOT RETURNED THE TEXT
--- NOTE | 2020-12-24 07:15 | NUR ---
RECEIVED BEDSIDE REPORT FROM NIGHT NURSE. PT. IS AWAKE, A&O X4. BREATHING IS UNLABORED. SKIN IS WARM AND DRY. IV INFUSING WELL ON LEFT AC. CALL LIGHT WITHIN REACH. ALL SAFETY MEASURES IN PLACE. PLAN OF CARE DISCUSSED. PT. IS STABLE. WILL CONTINUE TO MONITOR.
[2020-12-24 08:00] VITALS: BP 123/68
[2020-12-24] MEDS: PANTOPRAZOLE 40 MG TABEC PO SCH (10:12)
[2020-12-24] MEDS: SODIUM CHLORIDE 1 GM TAB PO SCH ×3 (10:12→17:41)
[2020-12-24] MEDS: FUROSEMIDE 40 MG TAB PO SCH ×2 (10:13→21:51)
[2020-12-24] MEDS: SPIRONOLACTONE 50 MG TAB PO SCH ×2 (10:13→17:42)
--- NOTE | 2020-12-24 10:30 | NUR ---
PATIENT HAS BEEN SCREENED AND CATEGORIZED LOW NUTRITION RISK. PATIENT WILL BE SEEN WITHIN 7 DAYS OF ADMISSION. 12/29/[address]
--- NOTE | 2020-12-24 10:45 | NUR ---
SPOKE TO PAYROLL SUPERVISOR, DR. HOGAN, AND INFORMED HIM ABOUT THE NA LEVEL OF 119. ASKED IF HE WOULD LIKE TO GIVE AN ADDITIONAL NACL 3% FLUIDS. DR. HOGAN STATED NO NEW ORDERS AT THIS TIME.
--- NOTE | 2020-12-24 10:50 | NUR ---
WENT TO RETRIEVE PLASMA FROM BLOOD BANK BUT NO ARMBAND WAS IN PLACE. PLASMA WAS IMMEDIATELY RETURNED. MELYSSA SAVAGE TECH, AT BEDSIDE PLACING WRISTBAND. WILL WAIT FOR WRISTBAND TO BE PROCESSED THEN WILL ADMINISTER PLASMA.
--- NOTE | 2020-12-24 11:45 | NUR ---
PRE VITALS SIGNS TAKEN AND WITHIN NORMAL RANGE. PLASMA CHECKED AND STARTED THE TRANSFUSION ORDERED. ALL SAFETY PARAMETERS IN PLACE. EDUCATED PT ON PLASMA ADMINISTRATION AND S/SX OF ADVERSE REACTIONS. PT VERBALIZED UNDERSTANDING. WILL CONTINUE TO MONITOR THE PT.
[2020-12-24 12:08] LABS: T3 UPTAKE 36 % (24-39); T4 (THYROXINE) 6.4 ug/dL (4.5-12.0)
--- NOTE | 2020-12-24 12:26 | NUR ---
US TECH AT BEDSIDE READY TO START THE PROCEDURE PARACENTESIS ONCE RADIOLOGIST ARRIVE. PT IS STABLE AT THIS TIME.
--- NOTE | 2020-12-24 12:35 | NUR ---
RADIOLOGIST AT BEDSIDE STARTING THE PROCEDURE PARACENTESIS. VITAL SIGNS STABLE. ALL SAFETY MEASURES IN PLACE. WILL CONTINUE TO MONITOR THE PT.
--- NOTE | 2020-12-24 13:00 | NUR ---
RADIOLOGIST COMPLETED PARACENTESIS. FLUID OBTAINED WAS 5175 ML OF CLEAR YELLOW LIQUID. PT DENIES PAIN. SITE WHERE FLUID WAS TAKEN HAS A PRESSURE DRESSING IN PLACE, WITH NO BLEEDING NOTED. ABDOMEN IS LESS DISTENDED AND FIRM THEN BEFORE PROCEDURE. PT IS STABLE AT THIS TIME.
--- NOTE | 2020-12-24 13:12 | NUR ---
PLASMA TRANSFUSION IS COMPLETE. VITAL SIGNS ARE STABLE. BREATHING IS UNLABORED ON RA. PT DENIED ANY ADVERSE REACTIONS TO PLASMA. PT IS STABLE AT THIS TIME. LUNCH IS AT BEDSIDE. PT IS GOING TO EAT.
--- NOTE | 2020-12-24 15:34 | NUR ---
PT IS SLEEPING. BREATHING IS UNLABORED.CALL LIGHT WITHIN REACH. ALL SAFETY MEASURES IN PLACE. WILL CONTINUE MONITOR THE PT.
[2020-12-24 16:00] VITALS: BP 113/66
[2020-12-24] MEDS ORDERED: ALBUMIN HUMAN 5 % 250 ML IV ONE (16:30)
--- NOTE | 2020-12-24 17:30 | NUR ---
PT IS STABLE AT THIS TIME. NO BLEEDING FROM PARACENTESIS SITE. PT DENIES PAIN. NO RESPIRATORY DISTRESS NOTED. WILL CONTINUE TO MONITOR.
--- NOTE | 2020-12-24 19:20 | NUR ---
ENDORSED PT TO RADIOLOGY SPECIALIST NURSE FOR CONTINUITY OF CARE. PT STABLE. PLAN OF CARE DISCUSSED.
[2020-12-24 21:09] LABS: APPEARANCE,SPUN,BODY FLUID CLEAR (CLEAR); APPEARANCE,UNSPUN,BODY FLUID CLEAR (CLEAR); COLOR,BODY FLUID YELLOW (LT YELLOW); GLUCOSE,BODY FLUID 132 mg/dL; RBC, BODY FLUID 0 /cu. mm.; SPECIMENTYPE,BODY FLUID PARACENTESIS; TOTAL VOLUME,BODY FLUID 5000 mL; WBC, BODY FLUID 0 /cu. mm.
[2020-12-25 04:00] VITALS: BP 116/66
[2020-12-25 06:07] LABS: ANION GAP 7.9 (8-16); CARBON DIOXIDE 24.6 mmol/L (21-32); CREATININE 0.8 mg/dL (0.6-1.3); POTASSIUM 4.5 mmol/L (3.5-5.1)
[2020-12-25 06:19] LABS: BASOPHILS % (AUTO) 0.8 % (0.0-2.0); EOSINOPHILS # (AUTO) 0.1 K/uL (0-0.4); EOSINOPHILS % (AUTO) 1.2 % (0.0-4.0); HEMATOCRIT 22.8 % (36-52); HEMOGLOBIN 8.1 g/dL (12.0-18.0); LYMPHOCYTES # (AUTO) 2.1 K/uL (2.0-11.5); LYMPHOCYTES % (AUTO) 40.7 % (20.5-51.1); MEAN CORPUSCULAR HEMOGLOBIN 38 pg (27-31); MEAN CORPUSCULAR HGB CONC 35 g/dL (33-37); MEAN CORPUSCULAR VOLUME 106.6 fL (80-94); MONOCYTES # (AUTO) 0.6 K/uL (0.8-1.0); MONOCYTES % (AUTO) 10.8 % (1.7-9.3); NEUTROPHILS # (AUTO) 2.5 K/uL (1.8-7.7); NEUTROPHILS % (AUTO) 46.5 % (42.2-75.2); PLATELET COUNT (AUTO) 74 K/uL (140-450); RED BLOOD CELL COUNT(AUTO) 2.14 MIL/uL (4.20-6.10); RED CELL DISTRIBUTION WIDTH 15.3 % (11.6-13.7); WHITE BLOOD COUNT (AUTO) 5.3 K/uL (4.8-10.8)
--- NOTE | 2020-12-25 06:29 | NUR ---
RECEIVED CALL FROM LAB FOR CRITICAL VALUE OF SODIUM 119 AND CALCIUM 7.2. LEFT MESSAGE FOR MINE SAFETY DIRECTOR MD OF [facility]. WILL ENDORSE TO AM SHIFT TO FOLLOW UP.
--- NOTE | 2020-12-25 07:30 | NUR ---
RECEIVED BEDSIDE REPORT FROM NIGHT NURSE FOR CONTINUE OF CARE. PT A&O X4. BREATHING IS UNLABORED. SKIN IS WARM AND DRY. IV INFUSING WELL ON LEFT AC 20G. INTACT AND PATENT. S/P PARACENTESIS 12/24/20 5L OF FLUIDS WERE REMOVED. PLAN OF CARE DISCUSSED. CALL LIGHT WITHIN REACH. ALL SAFETY MEASURES IN PLACE. WILL CONTINUE TO MONITOR.
[2020-12-25 08:00] VITALS: BP 130/80
[2020-12-25] MEDS: SODIUM CHLORIDE 1 GM TAB PO SCH ×3 (09:16→16:35)
[2020-12-25] MEDS: FUROSEMIDE 40 MG TAB PO SCH ×2 (09:17→21:25)
[2020-12-25] MEDS: PANTOPRAZOLE 40 MG TABEC PO SCH (09:17)
[2020-12-25] MEDS: SPIRONOLACTONE 50 MG TAB PO SCH ×2 (09:18→16:35)
--- NOTE | 2020-12-25 09:45 | NUR ---
ALL SCHEDULE MEDS GIVEN. PT IS STABLE. NO DISTRESS NOTED. WILL CONTINUE TO MONITOR.
--- NOTE | 2020-12-25 11:15 | NUR ---
CHECKED ON PATIENT. PATIENT IS STABLE. NO DISTRESS NOTED. WILL CONTINUE TO MONITOR.
--- NOTE | 2020-12-25 13:11 | NUR ---
RECEIVED BEDSIDE REPORT FROM NIGHT NURSE FOR CONTINUE OF CARE. PT A&O X4. BREATHING IS UNLABORED. SKIN IS WARM AND DRY. IV INFUSING WELL ON LEFT AC 20G. INTACT AND PATENT. S/P PARACENTESIS 12/24/20 5L OF FLUIDS WERE REMOVED. PLAN OF CARE DISCUSSED. CALL LIGHT WITHIN REACH. ALL SAFETY MEASURES IN PLACE. WILL CONTINUE TO MONITOR. Addendum: 12/25/20 at 1313 by Germán Ahmadi RN RN WRONG TIME*
--- NOTE | 2020-12-25 13:11 | NUR ---
ALL SCHEDULE MEDS GIVEN. PT IS STABLE. NO DISTRESS NOTED. WILL CONTINUE TO MONITOR.
--- NOTE | 2020-12-25 14:12 | NUR ---
DC PLANNING: CM SPOKE WITH THE PATIENT AT BEDSIDE AND CONFIRMED HIS ADDRESS AND PHONE NUMBER PER HIS FACE SHEET. THE PATIENT LIVES IN APARTMENT [facility]. THE PATIENT LIVES IN SECOND FLOOR APARTMENT WITH HIS SON. HIS SON AND A FRIEND PROVIDE TRANSPORT TO APPOINTMENTS AND TO RUN ERRANDS. THE PATIENT GOES TO A CLINIC IN [place] BUT WAS UNABLE TO RECALL THE NAME. HE HAS BEEN THERE ONCE AND WAS REFERRED TO A LIVER SPECIALIST WHO HE WILL SEE ON 01/08. THE PATIENT IS ABLE TO AMBULATE SHORT DISTANCES BUT BECOMES TIRED AND SOB. HE HAS NO H/O HOME HEALTH OR DME. THE PLAN IS FOR THE PATIENT TO RETURN HOME, PIERRE GAVE HIM RESOURCES OF THE /[facility]-NURSE HOTLINE TO FIND A [facility] PCP. PIERRE WILL FOLLOW FOR NEEDS. Addendum: 12/30/20 at 1233 by Charito Clark CM DC PLANNING: PATIENT IS S/P PARACENTESIS ON THE WITH 5L REMOVED. NOW WITH WBC'S OF 21.1 AND HBG OF 6.9 REQUIRING TRANSFUSION OF PRBC'S. THE PLAN IS FOR PATIENT TO DC HOME WHEN STABLE WITH F/U WITH A LIVER SPECIALIST ON Dec. PIERRE WILL FOLLOW FOR NEEDS. Addendum: 01/05/21 at 1222 by Charito Clark CM DC PLANNING: THE PATIENT IS SCHEDULED FOR ANOTHER PARACENTESIS TODAY WILL POTENTIAL DC TO HOME TODAY OR TOMORROW. PIERRE SPOKE WITH THE PATIENTS SON JENIFFER WHO STATES THAT THE GI MD TOLD HIM THAT THE PATIENT SHOULD GO TO A HIGHER LEVEL OF CARE ONCE DC'D FOR FOLLOW UP AND TREATMENT. JENIFFER STATES HE WILL TRY [facility], PIERRE ALSO GAVE HIM [facility] AN OPTION. PIERRE ENDORSED THAT PHYSICAL THERAPY FEELS THE PATIENT NEEDS A FWW, [facility] PIERRE LET JENIFFER KNOW THAT THE COMPANY WILL PROBABLY CALL HIM FOR DELIVERY OPTIONS AND THAT CM WILL ALSO SPEAK WITH THEM. JENIFFER STATES THAT THE PATIENT HAD AN APPOINTMENT AT [facility] AFTER HIS LAST DISCHARGE BUT DIDN'T MAKE IT AND WILL FOLLOW UP THIS TIME. THE PATIENT ALSO HAS AN APPOINTMENT ON 01/08 WITH A SPECIALIST WHICH HIS SON STATES HE WILL GO TO. NO OTHER QUESTIONS OR CONCERNS VOICED BY JENIFFER, PIERRE WILL FOLLOW FOR NEEDS. Addendum: 01/05/21 at 1605 by Charito Clark CM DC PLANNING: DC ORDER RECEIVED, PIERRE WAITING FOR THE M/AMIE FORM FROM [facility] FOR THE FWW THAT WAS ORDERED. PIERRE SPOKE WITH [facility] AGAIN, THEY WILL SEND THE FORM TO COMPLETE THE ORDER. CM WILL FOLLOW FOR NEEDS.
--- NOTE | 2020-12-25 17:45 | NUR ---
ALL SCHEDULED MEDS GIVEN. PT IS STABLE. NO DISTRESS NOTED. WILL CONTINUE TO MONITOR.
--- NOTE | 2020-12-25 19:00 | NUR ---
PATIENT RECEIVED IN BED, A&O X4. BREATHING IS UNLABORED. SKIN IS WARM AND DRY. IV INFUSING WELL ON LEFT AC 20G. INTACT AND PATENT. S/P PARACENTESIS 12/24/20 5L OF FLUIDS WERE REMOVED. RN DISCUSSED WITH PATIENT MEDICATION REGIMEN, FALL AND SAFETY INTERVENTIONS AND MEDICAL PLAN OF CARE. PATIENT RECEPTIVE TO RN INSTRUCTIONS. CALL LIGHT WITHIN REACH. ALL SAFETY MEASURES IN PLACE. WILL CONTINUE TO MONITOR. NO ACUTE DISTRESS NOTED. VSS.
--- NOTE | 2020-12-25 19:30 | NUR ---
ENDORSED TO POULTRY PROCESSING SUPERVISOR NURSE FOR CONTINUITY OF CARE. PT IS STABLE.
[2020-12-25 20:00] VITALS: BP 118/76
[2020-12-25] MEDS: HYDROcodone/APAP 7.5/325 MG 1 TAB PO PRN (21:24)
[2020-12-26 04:00] VITALS: BP 120/76
[2020-12-26 06:53] LABS: BASOPHILS % (AUTO) 0.5 % (0.0-2.0); EOSINOPHILS # (AUTO) 0.1 K/uL (0-0.4); HEMATOCRIT 24.7 % (36-52); HEMOGLOBIN 8.8 g/dL (12.0-18.0); LYMPHOCYTES # (AUTO) 1.6 K/uL (2.0-11.5); LYMPHOCYTES % (AUTO) 25.5 % (20.5-51.1); MEAN CORPUSCULAR HEMOGLOBIN 38 pg (27-31); MEAN CORPUSCULAR HGB CONC 36 g/dL (33-37); MEAN CORPUSCULAR VOLUME 107.2 fL (80-94); MONOCYTES # (AUTO) 0.3 K/uL (0.8-1.0); MONOCYTES % (AUTO) 5.3 % (1.7-9.3); NEUTROPHILS # (AUTO) 4.3 K/uL (1.8-7.7); NEUTROPHILS % (AUTO) 67.7 % (42.2-75.2); PLATELET COUNT (AUTO) 83 K/uL (140-450); RED CELL DISTRIBUTION WIDTH 15.2 % (11.6-13.7); WHITE BLOOD COUNT (AUTO) 6.3 K/uL (4.8-10.8)
[2020-12-26 07:12] LABS: ANION GAP 9.9 (8-16); CARBON DIOXIDE 24.2 mmol/L (21-32); CREATININE 0.9 mg/dL (0.6-1.3); POTASSIUM 4.1 mmol/L (3.5-5.1)
--- NOTE | 2020-12-26 07:30 | NUR ---
RECEIVED BEDSIDE REPORT FROM NIGHT NURSE FOR CONTINUE OF CARE. PT A&O X4. BREATHING IS UNLABORED. SKIN IS WARM AND DRY. IV INFUSING WELL ON LEFT AC 20G. INTACT AND PATENT. G-TUBE IN PLACE. PLAN OF CARE DISCUSSED. CALL LIGHT WITHIN REACH. ALL SAFETY MEASURES IN PLACE. WILL CONTINUE TO MONITOR. Addendum: 12/26/20 at 1931 by Germán Ahmadi RN RN NO G-TUBE IN PLACE. WRONG PATIENT.
[2020-12-26 08:00] VITALS: BP 150/89
[2020-12-26] MEDS: SPIRONOLACTONE 50 MG TAB PO SCH ×2 (09:09→17:00)
[2020-12-26] MEDS: PANTOPRAZOLE 40 MG TABEC PO SCH (09:09)
[2020-12-26] MEDS: FUROSEMIDE 40 MG TAB PO SCH ×2 (09:09→20:58)
[2020-12-26] MEDS: SODIUM CHLORIDE 1 GM TAB PO SCH ×3 (09:09→17:00)
--- NOTE | 2020-12-26 09:45 | NUR ---
ALL SCHEDULED MEDS GIVEN. PT IS STABLE. NO DISTRESS NOTED. WILL CONTINUE TO MONITOR.
[2020-12-26] MEDS ORDERED: CALCIUM GLUCONATE 10% 1,000 MG in NACL 0.9% 50 ML IV SCH (10:00)
--- NOTE | 2020-12-26 10:50 | NUR ---
COMPLAINED OF NAUSEA. ADMINISTERED ZOFRAN IV PER MD ORDERED.
[2020-12-26] MEDS ORDERED: PHARMACY TO DOSE MC PRN (11:35)
[2020-12-26] MEDS ORDERED: MISC ORAL TAB PO SCH (13:00)
--- NOTE | 2020-12-26 13:27 | NUR ---
ALL SCHEDULED MEDS GIVEN. PT IS STABLE. NO DISTRESS NOTED. WILL CONTINUE TO MONITOR.
--- NOTE | 2020-12-26 14:20 | NUR ---
RADIOLOGIST MD AT BEDSIDE EXPLAINING PATIENT THE PARACENTESIS PROCEDURE. PT VERBALIZED UNDERSTANDING AND SIGNED CONSENT FORM.
--- NOTE | 2020-12-26 15:13 | NUR ---
PARACENTESIS PROCEDURE COMPLETED 7.5L FLUIDS REMOVED. PT IS STABLE. NO DISTRESS NOTED.
[2020-12-26] MEDS ORDERED: ALBUMIN HUMAN 25% IV SCH (15:15)
[2020-12-26 16:00] VITALS: BP 102/52
[2020-12-26] MEDS ORDERED: ALBUMIN HUMAN 5 % 250 ML IV SCH (16:10)
--- NOTE | 2020-12-26 19:28 | NUR ---
ENDORSED TO OFFICE RUNNER NURSE FOR CONTINUITY OF CARE. PT IS STABLE.
--- NOTE | 2020-12-26 19:30 | NUR ---
RECEIVED BEDSIDE REPORT FROM NIGHT NURSE FOR CONTINUE OF CARE. PT A&O X4. BREATHING IS UNLABORED. SKIN IS WARM AND DRY. IV INFUSING WELL ON LEFT AC 20G. INTACT AND PATENT. G-TUBE IN PLACE. PLAN OF CARE DISCUSSED. CALL LIGHT WITHIN REACH. ALL SAFETY MEASURES IN PLACE. WILL CONTINUE TO MONITOR. Addendum: 12/26/20 at 1930 by Germán Ahmadi RN RN WRONG TIMESTAMP*
--- NOTE | 2020-12-26 19:32 | NUR ---
RECEIVED BEDSIDE REPORT FROM AM SHIFT RN. PATIENT IS A&O X4, SAFETY MEASURES IN PLACE, ON ROOM AIR, LAC 20G SALINE LOCK, PT STABLE AT THIS MOMENT, WILL CONTINUE TO MONITOR.
--- NOTE | 2020-12-26 20:59 | NUR ---
ADMINISTERED SCHEDULED MED, TOLERATED WELL, EDUCATED PT ON MEDICATION PURPOSE, PT VERBALIZED UNDERSTANDING, STABLE AT THIS MOMENT, WILL CONTINUE TO MONITOR.
--- NOTE | 2020-12-26 22:15 | NUR ---
PROVIDED PT WITH ICE CHIPS, PT IS KEPT COMFORTABLE, NO SIGNS OF DISTRESS, SKIN IS WARM DRY AND INTACT, STABLE AT THIS MOMENT, WILL CONTINUE TO MONITOR.
--- NOTE | 2020-12-27 00:30 | NUR ---
PT IS ASLEEP, NO SIGNS OF DISTRESS, SAFETY MEASURES IN PLACE, STABLE AT THIS MOMENT, WILL CONTINUE TO MONITOR.
--- NOTE | 2020-12-27 01:41 | NUR ---
PATIENT IS ASLEEP, NO SIGNS OF DISTRESS, OBSERVATION OF CHEST RISE AND FALL, STABLE AT THIS MOMENT, WILL CONTINUE TO MONITOR.
[2020-12-27 04:00] VITALS: BP 113/68
[2020-12-27 07:13] LABS: BASOPHILS % (AUTO) 0.3 % (0.0-2.0); HEMATOCRIT 24.9 % (36-52); LYMPHOCYTES # (AUTO) 0.5 K/uL (2.0-11.5); MEAN CORPUSCULAR HEMOGLOBIN 38 pg (27-31); MEAN CORPUSCULAR HGB CONC 36 g/dL (33-37); MEAN CORPUSCULAR VOLUME 105.5 fL (80-94); MONOCYTES # (AUTO) 0.5 K/uL (0.8-1.0); NEUTROPHILS # (AUTO) 9.1 K/uL (1.8-7.7); NEUTROPHILS % (AUTO) 89.7 % (42.2-75.2); PLATELET COUNT (AUTO) 68 K/uL (140-450); RED BLOOD CELL COUNT(AUTO) 2.36 MIL/uL (4.20-6.10); RED CELL DISTRIBUTION WIDTH 15.9 % (11.6-13.7); WHITE BLOOD COUNT (AUTO) 10.1 K/uL (4.8-10.8)
[2020-12-27 07:29] LABS: ANION GAP 10.9 (8-16); CARBON DIOXIDE 23.7 mmol/L (21-32); POTASSIUM 4.6 mmol/L (3.5-5.1)
--- NOTE | 2020-12-27 07:32 | NUR ---
RECEIVED BEDSIDE REPORT FROM NIGHT NURSE FOR CONTINUE OF CARE. PT A&O X4. BREATHING IS UNLABORED. SKIN IS WARM AND DRY. IV INFUSING WELL ON LEFT AC 20G. INTACT AND PATENT. S/P PARACENTESIS 12/26/20 7.5 L OUT. PLAN OF CARE DISCUSSED. CALL LIGHT WITHIN REACH. ALL SAFETY MEASURES IN PLACE. WILL CONTINUE TO MONITOR.
--- NOTE | 2020-12-27 07:36 | NUR ---
PASSED ON BEDSIDE ENDORSEMENT TO AM SHIFT RN. PT SHIVA,
[2020-12-27 08:00] VITALS: BP 98/45
[2020-12-27] MEDS: PANTOPRAZOLE 40 MG TABEC PO SCH (09:09)
[2020-12-27] MEDS: SODIUM CHLORIDE 1 GM TAB PO SCH ×3 (09:09→17:42)
[2020-12-27] MEDS: FUROSEMIDE 40 MG TAB PO SCH ×2 (09:09→21:00)
[2020-12-27] MEDS: SPIRONOLACTONE 50 MG TAB PO SCH ×2 (09:09→17:42)
--- NOTE | 2020-12-27 09:45 | NUR ---
ALL SCHEDULED MEDS GIVEN. PT IS STABLE. NO DISTRESS NOTED. WILL CONTINUE TO MONITOR
--- NOTE | 2020-12-27 12:00 | NUR ---
CHECKED ON PATIENT. PATIENT IS STABLE. NO DISTRESS NOTED. WILL CONTINUE TO MONITOR.
[2020-12-27] MEDS ORDERED: ALBUMIN HUMAN 25% 50 ML IV SCH (13:00)
--- NOTE | 2020-12-27 14:00 | NUR ---
ALL SCHEDULED MEDS GIVEN. PT IS STABLE. NO DISTRESS NOTED. WILL CONTINUE TO MONITOR
[2020-12-27 16:00] VITALS: BP 104/56
--- NOTE | 2020-12-27 17:45 | NUR ---
INSERTED NEW IV 22 G ON LFA. INTACT AND PATENT. REMOVED IV 20G ON LAC.
[2020-12-27] MEDS: ACETAMINOPHEN 325 MG TAB PO PRN (18:10)
--- NOTE | 2020-12-27 18:10 | NUR ---
ADMINISTER TYLENOL PRN PER MD ORDERED. PATIENT'S TEMPERATURE WAS ELEVATED. COOLING MEASURES IN PLACE. WILL REASSESS TEMP
--- NOTE | 2020-12-27 19:30 | NUR ---
ENDORSED TO MANGLE ROLL OPERATOR NURSE FOR CONTINUITY OF CARE. PT IS STABLE.
--- NOTE | 2020-12-27 22:28 | NUR ---
Assumed care this evening. A/O. Denies pain. In no acute distress. BP is on the low side. 92/42.. Josselyn contacted and notified. Per hold the Lasix for tonight. Will continue to monitor.
[2020-12-28 02:29] VITALS: BP 94/51
[2020-12-28 04:00] VITALS: BP 93/60
[2020-12-28 07:30] LABS: ANION GAP 9.9 (8-16); BASOPHILS % (AUTO) 0.1 % (0.0-2.0); CARBON DIOXIDE 24.6 mmol/L (21-32); CREATININE 1.1 mg/dL (0.6-1.3); EOSINOPHILS % (AUTO) 0.1 % (0.0-4.0); HEMATOCRIT 22.9 % (36-52); LYMPHOCYTES # (AUTO) 0.8 K/uL (2.0-11.5); LYMPHOCYTES % (AUTO) 7.5 % (20.5-51.1); MEAN CORPUSCULAR HEMOGLOBIN 38 pg (27-31); MEAN CORPUSCULAR HGB CONC 35 g/dL (33-37); MEAN CORPUSCULAR VOLUME 108.9 fL (80-94); MONOCYTES # (AUTO) 0.7 K/uL (0.8-1.0); MONOCYTES % (AUTO) 6.5 % (1.7-9.3); NEUTROPHILS # (AUTO) 9.6 K/uL (1.8-7.7); NEUTROPHILS % (AUTO) 85.8 % (42.2-75.2); PLATELET COUNT (AUTO) 56 K/uL (140-450); POTASSIUM 4.5 mmol/L (3.5-5.1); RED BLOOD CELL COUNT(AUTO) 2.11 MIL/uL (4.20-6.10); RED CELL DISTRIBUTION WIDTH 16.1 % (11.6-13.7); WHITE BLOOD COUNT (AUTO) 11.1 K/uL (4.8-10.8)
[2020-12-28 08:00] VITALS: BP 93/56
[2020-12-28] MEDS: FUROSEMIDE 40 MG TAB PO SCH ×2 (09:23→21:00)
[2020-12-28] MEDS: SODIUM CHLORIDE 1 GM TAB PO SCH ×3 (09:23→16:20)
[2020-12-28] MEDS: SPIRONOLACTONE 50 MG TAB PO SCH ×2 (09:24→16:19)
[2020-12-28] MEDS: PANTOPRAZOLE 40 MG TABEC PO SCH (09:24)
--- NOTE | 2020-12-28 09:45 | NUR ---
ALL SCHEDULED MEDS GIVEN. PT IS STABLE. NO DISTRESS NOTED. WILL CONTINUE TO MONITOR.
--- NOTE | 2020-12-28 11:30 | NUR ---
CHECKED ON PATIENT. PATIENT IS STABLE. DENIES PAIN. WILL CONTINUE TO MONITOR.
[2020-12-28] MEDS: ALBUMIN HUMAN 25% 100 ML IV SCH ×2 (12:54→23:05)
--- NOTE | 2020-12-28 13:55 | NUR ---
CHECKED ON PATIENT. PATIENT IS STABLE. DENIES PAIN. WILL CONTINUE TO MONITOR.
[2020-12-28 16:00] VITALS: BP 102/51
--- NOTE | 2020-12-28 16:30 | NUR ---
ALL SCHEDULED MEDS GIVEN. PT IS STABLE. NO DISTRESS NOTED. WILL CONTINUE TO MONITOR.
--- NOTE | 2020-12-28 19:30 | NUR ---
ENDORSED TO COMMUNICATIONS OPERATOR NURSE FOR CONTINUITY OF CARE. PT IS STABLE.
[2020-12-28 20:00] VITALS: BP 93/41
[2020-12-29 04:00] VITALS: BP 95/40
[2020-12-29 06:07] LABS: BASOPHILS % (AUTO) 0.3 % (0.0-2.0); EOSINOPHILS % (AUTO) 0.2 % (0.0-4.0); HEMATOCRIT 21.3 % (36-52); HEMOGLOBIN 7.6 g/dL (12.0-18.0); LYMPHOCYTES # (AUTO) 0.1 K/uL (2.0-11.5); LYMPHOCYTES % (AUTO) 1.3 % (20.5-51.1); MEAN CORPUSCULAR HEMOGLOBIN 39 pg (27-31); MEAN CORPUSCULAR HGB CONC 36 g/dL (33-37); MONOCYTES # (AUTO) 0.1 K/uL (0.8-1.0); MONOCYTES % (AUTO) 0.6 % (1.7-9.3); NEUTROPHILS # (AUTO) 8.5 K/uL (1.8-7.7); NEUTROPHILS % (AUTO) 97.6 % (42.2-75.2); PLATELET COUNT (AUTO) 46 K/uL (140-450); RED BLOOD CELL COUNT(AUTO) 1.95 MIL/uL (4.20-6.10); RED CELL DISTRIBUTION WIDTH 16.2 % (11.6-13.7); WHITE BLOOD COUNT (AUTO) 8.7 K/uL (4.8-10.8)
[2020-12-29 06:25] LABS: ANION GAP 14.1 (8-16); CARBON DIOXIDE 20.7 mmol/L (21-32); CREATININE 1.2 mg/dL (0.6-1.3); POTASSIUM 4.8 mmol/L (3.5-5.1)
[2020-12-29] MEDS: ALBUMIN HUMAN 25% 100 ML IV SCH ×3 (06:28→21:44)
[2020-12-29] MEDS: PANTOPRAZOLE 40 MG TABEC PO SCH (09:33)
[2020-12-29] MEDS: SODIUM CHLORIDE 1 GM TAB PO SCH ×3 (09:33→17:00)
[2020-12-29] MEDS: FUROSEMIDE 40 MG TAB PO SCH (09:35)
[2020-12-29] MEDS: SPIRONOLACTONE 50 MG TAB PO SCH ×2 (09:36→17:00)
[2020-12-29 12:00] VITALS: BP 110/66
--- NOTE | 2020-12-29 16:22 | NUR ---
12/29/20 RD INITIAL ASSESSMENT COMPLETED PLEASE REFER TO NUTRITION ASSESSMENT UNDER CARE ACTIVITY FOR ESTIMATED NUTRITIONAL NEEDS. 1. CONTINUE REGULAR DIET TOLERATED 2. RD PROVIDED NUTRITION EDUCATION ON CIRRHOSIS AND PROTEIN RICH FOODS 3. RD TO FOLLOW-UP 5-7 DAYS, LOW RISK BLOSSOM MITCHELL, RD
--- NOTE | 2020-12-29 16:58 | NUR ---
DC PLANNING PATIENT IS A 50 YEAR-OLD MALE ADMITTED TO THE [facility]/ED ON 12/23/20 DUE TO COMPLAINS OF INCREASED ABDOMINAL DISTENTION FOR SEVERAL DAYS. (PATIENT IS CZECH SPEAKING ONLY). SW MET WITH PATIENT AT BEDSIDE TO DISCUSS AND GATHER HIS COLLATERAL INFORMATION. PATIENT WAS AWAKE AND ALERT AND REPORTED LIVING AT HOME WITH HIS ADULT SON JENIFFER CORDERO IN AN APARTMENT IN [place]. PER PATIENT HIS SON IS HIS EMERGENCY CONTACT AND HE WILL BE WHO IS THE DECISION MAKER FOR PATIENT'S MEDICAL CARE. PER PATIENT HE HAS NO ADVANCE DIRECTIVES HOWEVER; SW PROVIDED WITH AN ADVANCE DIRECTIVES INFORMATION PACKET FOR PATIENT TO COMPLETE WITH HIS SON. PATIENT REPORTED NOT HAVING ANY ISSUES GETTING OR TAKING HIS MEDICATIONS FROM THE [facility] NEAR HIS HOME IN [place] AND [facility]. PATIENT STATED NOT HAVING ANY EQUIPMENT AT HOME HIS DME AND REPORTED TO SW THAT HIS SON WILL BE ASSISTING HIM WITH TRANSPORTATION AND WILL PICK HIM UP FROM [facility] TO TAKE HIM BACK HOME. SW WILL FOLLOW UP NEEDED.
--- NOTE | 2020-12-29 19:30 | NUR ---
RECEIVED BEDSIDE REPORT FROM AM NURSE. PATIENT IS AWAKE, ALERT, VERBALLY RESPONSIVE. NO S/S OF RESPIRATORY DISTRESS. RESPIRATION EVEN UNLABORED. ALL SAFETY PRECAUTIONS ARE IN PLACE. NO COMPLAINTS OF PAIN AT THIS TIME. CALL LIGHT WITHIN REACH. WILL CONTINUE TO MONITOR.
--- NOTE | 2020-12-29 21:44 | NUR ---
SCHEDULED MEDS GIVEN ORDERED. NEEDS ATTENDED TO.
[2020-12-30] VITALS: BP 98/44
--- NOTE | 2020-12-30 01:35 | NUR ---
PATIENT HAS FEVER 101.4, TYLENOL GIVEN ORDERED. COOLING MEASURES DONE. WILL CONTINUE TO MONITOR.
[2020-12-30] MEDS: ACETAMINOPHEN 325 MG TAB PO PRN (02:47)
[2020-12-30] MEDS: ALBUMIN HUMAN 25% 100 ML IV SCH ×3 (05:36→21:37)
--- NOTE | 2020-12-30 05:36 | NUR ---
ALBUMIN IVPB GIVEN ORDERED.
[2020-12-30 06:42] LABS: ANION GAP 16.6 (8-16); CARBON DIOXIDE 19.4 mmol/L (21-32)
[2020-12-30 06:58] LABS: BASOPHILS # (AUTO) 0.1 K/uL (0.00-0.22); BASOPHILS % (AUTO) 0.3 % (0.0-2.0); EOSINOPHILS # (AUTO) 0.9 K/uL (0-0.4); EOSINOPHILS % (AUTO) 4.2 % (0.0-4.0); LYMPHOCYTES # (AUTO) 0.3 K/uL (2.0-11.5); LYMPHOCYTES % (AUTO) 1.5 % (20.5-51.1); MEAN CORPUSCULAR HEMOGLOBIN 37 pg (27-31); MEAN CORPUSCULAR HGB CONC 35 g/dL (33-37); MEAN CORPUSCULAR VOLUME 108.4 fL (80-94); MONOCYTES # (AUTO) 1.2 K/uL (0.8-1.0); MONOCYTES % (AUTO) 5.9 % (1.7-9.3); NEUTROPHILS # (AUTO) 18.6 K/uL (1.8-7.7); NEUTROPHILS % (AUTO) 88.1 % (42.2-75.2); PLATELET COUNT (AUTO) 32 K/uL (140-450); RED BLOOD CELL COUNT(AUTO) 1.84 MIL/uL (4.20-6.10); RED CELL DISTRIBUTION WIDTH 16.4 % (11.6-13.7); WHITE BLOOD COUNT (AUTO) 21.1 K/uL (4.8-10.8)
--- NOTE | 2020-12-30 07:18 | NUR ---
ENDORSED PATIENT TO AM NURSE FOR CONTINUITY OF CARE. PT IS IN STABLE CONDITION.
--- NOTE | 2020-12-30 07:20 | NUR ---
RECEIVE REPORT FROM ELECTRONIC MUSICAL INSTRUMENT REPAIRER NURSE FOR CONTINUITY OF CARE. PATIENT SLEEPING. NO ACUTE DISTRESS NOTED. PATIENT HAS LAC 22 G RUNNING ALBUMIN. CALL LIGHT WITHIN REACH. ALL SAFETY MEASURES IN PLACE. WILL CONTINUE TO MONITOR.
[2020-12-30 08:00] LABS: HEMOGLOBIN 6.9 g/dL (12.0-18.0)
[2020-12-30 08:01] LABS: HEMATOCRIT 19.9 % (36-52)
[2020-12-30] MEDS: FUROSEMIDE 40 MG TAB PO SCH (09:00)
[2020-12-30] MEDS: SPIRONOLACTONE 50 MG TAB PO SCH ×2 (09:00→17:00)
[2020-12-30] MEDS: PANTOPRAZOLE 40 MG TABEC PO SCH (10:08)
[2020-12-30] MEDS: SODIUM CHLORIDE 1 GM TAB PO SCH ×3 (10:08→16:06)
--- NOTE | 2020-12-30 10:19 | NUR ---
PATIENT AWAKE AND ALERT. NO ACUTE DISTRESS NOTED. SCHEDULED MEDICATION GIVEN. SPIRONOLACTONE AND LASIX HELD DUE TO TO PATIENT BLOOD PRESSURE BEING LOW. CALL LIGHT WITHIN REACH. ALL SAFETY MEASURES IN PLACE. WILL CONTINUE TO MONITOR.
[2020-12-30 12:00] VITALS: BP 95/34
--- NOTE | 2020-12-30 12:15 | NUR ---
PATIENT AWAKE AND ALERT. NO ACUTE DISTRESS NOTED. PATIENT DENIES PAIN AT THIS TIME. MARTIAL ARTS INSTRUCTOR AT BEDSIDE AIDING PATIENT WITH ADLS. CALL LIGHT WITHIN REACH. ALL SAFETY MEASURES IN PLACE. WILL CONTINUE TO MONITOR.
--- NOTE | 2020-12-30 13:00 | NUR ---
PATIENT AWAKE AND ALERT. NO ACUTE DISTRESS NOTED. BLOOD TRANSFUSION STARTED. BP 70/33 HR 114, TEMP 98.2. RR 14, O2 100%. WILL CONTINUE TO MONITOR.
--- NOTE | 2020-12-30 13:15 | NUR ---
BP 78/39 HR 119, TEMP 98.2, RR 14, O2 97%. BLOOD TRANSFUSION IN PROGRESS.
--- NOTE | 2020-12-30 13:45 | NUR ---
BP 88/37, HR 116, TEMP 98.6, RR 16, O2 97%. TRANSFUSION STOPPED DUE TO IV INFILTRATION. NEW IV STARTED AND BLOOD TRANSFUSION RESTARTED.
--- NOTE | 2020-12-30 13:50 | NUR ---
NOTIFIED DR. ORTIZ ABOUT PATIENT CURRENT VS.
[2020-12-30] MEDS: MIDODRINE 5 MG TAB PO SCH ×2 (15:00→18:08)
[2020-12-30] MEDS: OCTREOTIDE ACETATE 100 MCG/ML VIAL IV SCH ×2 (15:01→21:37)
[2020-12-30] MEDS: LACTULOSE 20 GM/30 ML UDC PO SCH ×2 (15:01→16:07)
--- NOTE | 2020-12-30 16:00 | NUR ---
BLOOD TRANSFUSION COMPLETE. PATIENT AWAKE AND ALERT. NO ACUTE DISTRESS NOTED. ALL SAFETY MEASURES IN PLACE. WILL CONTINUE TO MONITOR.
--- NOTE | 2020-12-30 17:11 | NUR ---
PATIENT SLEEPING. NO ACUTE DISTRESS NOTED. EASY TO AWAKEN. CALL LIGHT WITHIN REACH. ALL SAFETY MEASURES IN PLACE. WILL CONTINUE TO MONITOR.
--- NOTE | 2020-12-30 17:39 | NUR ---
ALDACTONE 100 MG HELD DUE TO PATIENT BLOOD PRESSURE BEING LOW.
--- NOTE | 2020-12-30 18:33 | NUR ---
PATIENT SON AT BEDSIDE STATE THAT PATIENT MENTAL STATUS IS DIFFERENT TODAY COMPARED TO YESTERDAY. DR. ORTIZ NOTIFIED.
--- NOTE | 2020-12-30 18:45 | NUR ---
ATTEMPTED TO COLLECT SPUTUM AND URINE. WAS NOT SUCCESSFUL. WILL ENDORSE TO NIGHT NURSE.
--- NOTE | 2020-12-30 18:47 | NUR ---
PER DR. ORTIZ CONTINUE TO MONITOR AND HE WILL CALL PATIENT'S SON TOMORROW
--- NOTE | 2020-12-30 19:20 | NUR ---
ENDORSE TO HARMONICA MAKER NURSE FOR CONTINUITY OF CARE. PATIENT STABLE. ALL SAFETY MEASURES IN PLACE.
--- NOTE | 2020-12-30 19:21 | NUR ---
RECEIVED REPORT FROM AM NURSE. PATIENT IN BED RESTING WITH SON ON THE BEDSIDE CHAIR. NO SOB NOTED. ALL SAFETY PRECAUTIONS ARE IN PLACE. CALL LIGHT WITHIN REACH. WILL CONTINUE TO MONITOR.
[2020-12-30 20:00] VITALS: BP 110/66
--- NOTE | 2020-12-30 20:37 | NUR ---
SCHEDULED MEDS GIVEN ORDERED.
[2020-12-30] MEDS: PIPERACILLIN/TAZOBACTAM 3.375 GM in DEXTROSE 5% 50 ML IV SCH (21:35)
--- NOTE | 2020-12-31 00:05 | NUR ---
PATIENT HAS FEVER 101.2 , PRN MEDS GIVEN AAS ORDERED. COOLING MEASURES DONE. TEMP WENT DOWN TO 98.3. NO S/S OF RESPIRATORY DISTRESS.
[2020-12-31] MEDS: PIPERACILLIN/TAZOBACTAM 3.375 GM in DEXTROSE 5% 50 ML IV SCH ×3 (04:49→21:00)
[2020-12-31] MEDS: ALBUMIN HUMAN 25% 100 ML IV SCH (04:50)
[2020-12-31] MEDS: OCTREOTIDE ACETATE 100 MCG/ML VIAL IV SCH ×3 (04:50→21:00)
[2020-12-31] MEDS: MIDODRINE 5 MG TAB PO SCH ×3 (07:05→19:28)
--- NOTE | 2020-12-31 07:15 | NUR ---
ENDORSED TO AM NURSE FOR CONTINUITY OF CARE. PATIENT IS STABLE.
--- NOTE | 2020-12-31 07:15 | NUR ---
RECEIVE REPORT FROM FLYING SQUAD WORKER NURSE FOR CONTINUITY OF CARE. PATIENT SLEEPING. NO ACUTE DISTRESS NOTED. CALL LIGHT WITHIN REACH. ALL SAFETY MEASURES IN PLACE. WILL CONTINUE TO MONITOR.
[2020-12-31 08:00] VITALS: BP 104/58
[2020-12-31] MEDS: FUROSEMIDE 40 MG TAB PO SCH (09:00)
[2020-12-31] MEDS: SPIRONOLACTONE 50 MG TAB PO SCH ×2 (09:00→17:00)
[2020-12-31] MEDS: LACTULOSE 20 GM/30 ML UDC PO SCH ×3 (09:01→17:38)
[2020-12-31] MEDS: SODIUM CHLORIDE 1 GM TAB PO SCH ×3 (09:02→17:38)
[2020-12-31] MEDS: PANTOPRAZOLE 40 MG TABEC PO SCH (09:02)
--- NOTE | 2020-12-31 09:18 | NUR ---
PATIENT AWAKE. PATIENT NOTED TO HAVE EPISODES OF CONFUSION. SCHEDULED MEDICATIONS GIVEN. PATIENT DID NOT RECEIVE ALDACTONE AND LASIX. BP WAS LOW 104/58. ATTEMPTED TO COLLECT SPUTUM AND UA BUT WAS NOT SUCCESSFUL.WILL NOTIFY MD. ALL SAFETY MEASURES IN PLACE. CALL LIGHT WITHIN REACH. WILL CONTINUE TO MONITOR.
--- NOTE | 2020-12-31 11:48 | NUR ---
PATIENT AWAKE. PATIENT NOTED TO HAVE EPISODES OF CONFUSION. ALL SAFETY MEASURES IN PLACE. CALL LIGHT WITHIN REACH. WILL CONTINUE TO MONITOR.
--- NOTE | 2020-12-31 13:18 | NUR ---
PATIENT AWAKE. PATIENT NOTED TO HAVE EPISODES OF CONFUSION. SON AT BEDSIDE. ALL SAFETY MEASURES IN PLACE. CALL LIGHT WITHIN REACH. WILL CONTINUE TO MONITOR.
--- NOTE | 2020-12-31 15:15 | NUR ---
PATIENT AWAKE. PATIENT NOTED TO HAVE EPISODES OF CONFUSION. ALL SAFETY MEASURES IN PLACE. CALL LIGHT WITHIN REACH. WILL CONTINUE TO MONITOR.
[2020-12-31 15:37] LABS: HEMATOCRIT 22.3 % (36-52); HEMOGLOBIN 7.6 g/dL (12.0-18.0); MEAN CORPUSCULAR HEMOGLOBIN 36 pg (27-31); MEAN CORPUSCULAR HGB CONC 34 g/dL (33-37); MEAN CORPUSCULAR VOLUME 105.3 fL (80-94); RED BLOOD CELL COUNT(AUTO) 2.11 MIL/uL (4.20-6.10); RED CELL DISTRIBUTION WIDTH 17.8 % (11.6-13.7)
[2020-12-31 15:45] LABS: APPEARANCE,URINE CLEAR (CLEAR); BILIRUBIN,URINE 2+ (NEGATIVE); BLOOD, URINE NEGATIVE (NEGATIVE); LEUKOCYTE ESTERASE ,URINE NEGATIVE (NEGATIVE); NITRITE, URINE NEGATIVE (NEGATIVE); PH,URINE 5.5 (5.0-9.0); UGLUCOSE NEGATIVE (NEGATIVE)
[2020-12-31 15:47] LABS: ANION GAP 11.9 (8-16); CARBON DIOXIDE 21.3 mmol/L (21-32); CREATININE 2.3 mg/dL (0.6-1.3); POTASSIUM 4.2 mmol/L (3.5-5.1)
[2020-12-31 16:00] VITALS: BP 93/53
[2020-12-31 16:08] LABS: COLOR,URINE AMBER (YELLOW)
[2020-12-31 17:01] LABS: WHITE BLOOD COUNT (AUTO) 29.4 K/uL (4.8-10.8)
[2020-12-31 17:03] LABS: EOSINOPHILS % (MANUAL) 1 % (0-4); LYMPHOCYTES % (MANUAL) 5 % (20-46); PLATELET COUNT (AUTO) 15 K/uL (140-450); PROMYELOCYTES % 1 % (0-0)
--- NOTE | 2020-12-31 17:06 | NUR ---
NOTIFY DR. SEGUNDO PATIENT WBC 29.4 AND PLATELETS 15 PENDING FURTHER ORDERS.
--- NOTE | 2020-12-31 17:20 | NUR ---
PATIENT AWAKE. PATIENT NOTED TO HAVE EPISODES OF CONFUSION. SON ASSISTED PATIENT TO BATHROOM. ALL SAFETY MEASURES IN PLACE. CALL LIGHT WITHIN REACH. WILL CONTINUE TO MONITOR.
[2020-12-31] MEDS ORDERED: LIDOCAINE 4% 40 MG/ML BTL TP SCH (19:00)
[2020-12-31] MEDS ORDERED: HYDROcodone/APAP 5/325 MG 1 TAB TAB PO PRN (19:05)
--- NOTE | 2020-12-31 19:20 | NUR ---
ENDORSE TO SUPERVISOR BRINE NURSE FOR CONTINUITY OF PATIENT CARE. PATIENT STABLE.
[2021-01-01] VITALS: BP 102/63
[2021-01-01] MEDS ORDERED: VANCOMYCIN PER PHARMACY MC PRN
[2021-01-01] MEDS ORDERED: VANCOMYCIN 1,000 MG in DEXTROSE 5% 250 ML IV ONE (00:15)
[2021-01-01] MEDS ORDERED: VANCOMYCIN 1,000 MG VIAL ONE (01:52)
[2021-01-01] MEDS: OCTREOTIDE ACETATE 100 MCG/ML VIAL IV SCH ×2 (04:57→13:35)
[2021-01-01] MEDS: PIPERACILLIN/TAZOBACTAM 3.375 GM in DEXTROSE 5% 50 ML IV SCH ×3 (04:57→21:59)
[2021-01-01 06:11] LABS: PHOSPHORUS 3.3 mg/dL (2.5-4.9)
[2021-01-01] MEDS: MIDODRINE 5 MG TAB PO SCH ×3 (06:13→19:00)
[2021-01-01 06:22] LABS: ANION GAP 10.1 (8-16); CARBON DIOXIDE 23.7 mmol/L (21-32); CREATININE 1.8 mg/dL (0.6-1.3); POTASSIUM 3.8 mmol/L (3.5-5.1)
[2021-01-01 07:22] LABS: HEMOGLOBIN 8.1 g/dL (12.0-18.0); WHITE BLOOD COUNT (AUTO) 19.9 K/uL (4.8-10.8)
[2021-01-01 07:23] LABS: HEMATOCRIT 24.1 % (36-52); MEAN CORPUSCULAR HEMOGLOBIN 35 pg (27-31); MEAN CORPUSCULAR HGB CONC 34 g/dL (33-37); MEAN CORPUSCULAR VOLUME 104.5 fL (80-94); PLATELET COUNT (AUTO) 27 K/uL (140-450); RED CELL DISTRIBUTION WIDTH 16.9 % (11.6-13.7)
[2021-01-01 07:24] LABS: EOSINOPHILS % (AUTO) 0.4 % (0.0-4.0); LYMPHOCYTES % (AUTO) 5.9 % (20.5-51.1); MONOCYTES % (AUTO) 8.5 % (1.7-9.3)
[2021-01-01 07:25] LABS: EOSINOPHILS # (AUTO) 0.1 K/uL (0-0.4); LYMPHOCYTES # (AUTO) 1.2 K/uL (2.0-11.5); MONOCYTES # (AUTO) 1.7 K/uL (0.8-1.0); NEUTROPHILS # (AUTO) 16.9 K/uL (1.8-7.7)
--- NOTE | 2021-01-01 07:30 | NUR ---
RECEIVE REPORT FROM FOUNDRY WORKER APPRENTICE NURSE FOR CONTINUITY OF CARE. PATIENT SLEEPING. NO ACUTE DISTRESS NOTED. CALL LIGHT WITHIN REACH. ALL SAFETY MEASURES IN PLACE.
[2021-01-01 08:00] VITALS: BP 100/57
[2021-01-01] MEDS: SPIRONOLACTONE 50 MG TAB PO SCH ×2 (09:03→17:39)
[2021-01-01] MEDS: PANTOPRAZOLE 40 MG TABEC PO SCH (09:03)
[2021-01-01] MEDS: SODIUM CHLORIDE 1 GM TAB PO SCH ×2 (09:03→13:24)
[2021-01-01] MEDS: FUROSEMIDE 40 MG TAB PO SCH (09:03)
[2021-01-01] MEDS: LACTULOSE 20 GM/30 ML UDC PO SCH ×2 (09:05→13:24)
--- NOTE | 2021-01-01 09:30 | NUR ---
PT LAYING ON BED NO COMPLAINS, NO SOD NOTED, ALL SAFETY MEASURES ON PLACE, CALLS LIGHT WITHIN REACH
--- NOTE | 2021-01-01 11:40 | NUR ---
PT LAYING ON BED NO COMPLAINS, NO SOD NOTED, SON NEXT TO BED SIDE .ALL SAFETY MEASURES ON PLACE, CALLS LIGHT WITHIN REACH
--- NOTE | 2021-01-01 13:40 | NUR ---
PT LAYING ON BED NO COMPLAINS, NO SOD NOTED, ALL SAFETY MEASURES ON PLACE, CALLS LIGHT WITHIN REACH
--- NOTE | 2021-01-01 15:40 | NUR ---
PT LAYING ON BED NO COMPLAINS, NO SOD NOTED, FAMILY MEMBER NEXT TO BED SIDE ALL SAFETY MEASURES ON PLACE, CALLS LIGHT WITHIN REACH
[2021-01-01 16:00] VITALS: BP 102/55
--- NOTE | 2021-01-01 17:45 | NUR ---
PT LAYING ON BED NO COMPLAINS, NO SOD NOTED, DR DAVIES TALKED TO THE PT AND THE FAMILY ALL SAFETY MEASURES ON PLACE, CALLS LIGHT WITHIN REACH
--- NOTE | 2021-01-01 19:20 | NUR ---
FULL BED SIDE REPORT GIVEN TO GRAIN ELEVATOR MOTOR STARTER NURSE
[2021-01-01 20:00] VITALS: BP 105/62
[2021-01-01] MEDS ORDERED: VANCOMYCIN 750 MG in DEXTROSE 5% 250 ML IV SCH (22:00)
[2021-01-02] MEDS: PIPERACILLIN/TAZOBACTAM 3.375 GM in DEXTROSE 5% 50 ML IV SCH ×3 (05:41→20:41)
[2021-01-02] MEDS: MIDODRINE 5 MG TAB PO SCH ×3 (06:00→19:06)
--- NOTE | 2021-01-02 07:30 | NUR ---
RECEIVED BEDSIDE REPORT FROM NIGHT NURSE FOR CONTINUE OF CARE. PT A&O X4. BREATHING IS UNLABORED. SKIN IS WARM AND DRY. PLAN OF CARE DISCUSSED. CALL LIGHT WITHIN REACH. ALL SAFETY MEASURES IN PLACE.
[2021-01-02 07:33] LABS: ALBUMIN 2.2 g/dL (3.4-5.0); BILIRUBIN,DIRECT 3.3 mg/dL (0.0-0.3); TOTAL BILIRUBIN 7.1 mg/dL (0.0-1.0)
[2021-01-02 08:00] VITALS: BP 103/61
[2021-01-02] MEDS: SPIRONOLACTONE 50 MG TAB PO SCH (09:37)
--- NOTE | 2021-01-02 09:38 | NUR ---
PT ON BED GOT CHANGED AND CLEANED, EATING BREAKFAST NO SOD NOTED, GOT MORNING MEDICATION TOLERATED WELL, ALL SAFETY MEASURES ON PLACE, CALLS LIGHT WITHIN REACH
[2021-01-02 10:18] LABS: ANION GAP 9.5 (8-16); CARBON DIOXIDE 24.9 mmol/L (21-32); CREATININE 1.3 mg/dL (0.6-1.3); POTASSIUM 4.4 mmol/L (3.5-5.1)
[2021-01-02 11:02] LABS: HEMATOCRIT 26.7 % (36-52); HEMOGLOBIN 9.2 g/dL (12.0-18.0); MEAN CORPUSCULAR HEMOGLOBIN 36 pg (27-31); MEAN CORPUSCULAR HGB CONC 35 g/dL (33-37); RED BLOOD CELL COUNT(AUTO) 2.54 MIL/uL (4.20-6.10); RED CELL DISTRIBUTION WIDTH 16.9 % (11.6-13.7); WHITE BLOOD COUNT (AUTO) 10.4 K/uL (4.8-10.8)
[2021-01-02 11:03] LABS: EOSINOPHILS % (MANUAL) 1 % (0-4); LYMPHOCYTES % (MANUAL) 11 % (20-46); MONOCYTES % (MANUAL) 12 % (5-12); PLATELET COUNT (AUTO) 25 K/uL (140-450)
--- NOTE | 2021-01-02 11:45 | NUR ---
PT LAYING OB BED NO COMPLAINS, NO SOD NOTED, ALL SAFETY MEASURES ON P[LACE CLLS LIGHT WITHIN REACH
--- NOTE | 2021-01-02 13:30 | NUR ---
PATIENT LYING IN BED AWAKE . NO SIGNS OF DISTRESS. ALL SAFETY MEASURES ON PLACE
--- NOTE | 2021-01-02 13:35 | NUR ---
PT ON BED NO COMPLAINS HIS SON NEXT TO BED SIDE, ASKED ABOUT HIS DAD SITUATION , QUESTIONS WAS ANSWERED, ALL SAFETY MEASURES ON PLACE CALLS LIGHT WITHIN REACH
--- NOTE | 2021-01-02 15:30 | NUR ---
PATIENT LYING IN BED AWAKE . NO SIGNS OF DISTRESS. ALL SAFETY MEASURES ON PLACE
[2021-01-02 16:00] VITALS: BP 130/78
--- NOTE | 2021-01-02 17:40 | NUR ---
PATIENT LYING IN BED AWAKE . NO SIGNS OF DISTRESS. ALL SAFETY MEASURES ON PLACE
--- NOTE | 2021-01-02 19:25 | NUR ---
RECEIVED BEDSIDE ENDORSEMENT FROM AM NURSE. PATIENT IS AWAKE. ALERT. NO SOB NOTED. BREATHING REGULAR UNLABORED. ALL SAFETY PRECAUTIONS ARE IN PLACE. CALL LIGHT WITHIN REACH. WILL CONTINUE TO MONITOR.
--- NOTE | 2021-01-02 21:15 | NUR ---
IV LINE INFILTRATED. INSERTED A NEW LINE ON THE RIGHT FOREARM, TOLERATED WELL.
--- NOTE | 2021-01-02 23:00 | NUR ---
ADMINISTERED VANCOMYCIN AT 2300 IVPB.
[2021-01-03] VITALS: BP 92/54
[2021-01-03] MEDS: PIPERACILLIN/TAZOBACTAM 3.375 GM in DEXTROSE 5% 50 ML IV SCH ×2 (04:49→12:56)
[2021-01-03] MEDS: MIDODRINE 5 MG TAB PO SCH ×3 (06:37→19:08)
--- NOTE | 2021-01-03 07:15 | NUR ---
RECEIVED PT FROM DILMA ORELLANA. PT IS AAOX4. NORMAL S1S2 NOTED. LUNG SOUND CTA. ON R/A. NO COUGH OR SOB NOTED. ABDOMEN DISTENDED. BOWEL SOUNDS ACTIVE X4 QUADS. DENIES N/V/D/C. DISTAL PULSES MODERATE, SKIN WARM. IV CATH TO RFA 20G TKO. NO S/S OF INFECTION OR INFILTRATION. DRESSING CDI. VOIDS FREELY. DENIES PAIN. CALL LIGHT WITHIN REACH. BED IN LOWEST POSITION.
--- NOTE | 2021-01-03 07:25 | NUR ---
ENDORSED PATIENT TO AM NURSE FOR CONTINUITY OF CARE. PT IN STABLE CONDITION
[2021-01-03 08:00] VITALS: BP 92/49
[2021-01-03] MEDS: SPIRONOLACTONE 50 MG TAB PO SCH (09:45)
[2021-01-03] MEDS: ALBUMIN HUMAN 25% 100 ML IV SCH (09:47)
[2021-01-03 10:52] LABS: BASOPHILS % (AUTO) 0.3 % (0.0-2.0); EOSINOPHILS # (AUTO) 0.1 K/uL (0-0.4); EOSINOPHILS % (AUTO) 1.2 % (0.0-4.0); HEMATOCRIT 24.2 % (36-52); HEMOGLOBIN 8.4 g/dL (12.0-18.0); LYMPHOCYTES # (AUTO) 1.6 K/uL (2.0-11.5); LYMPHOCYTES % (AUTO) 15.2 % (20.5-51.1); MEAN CORPUSCULAR HEMOGLOBIN 36 pg (27-31); MEAN CORPUSCULAR HGB CONC 35 g/dL (33-37); MEAN CORPUSCULAR VOLUME 104.3 fL (80-94); MONOCYTES # (AUTO) 2.1 K/uL (0.8-1.0); MONOCYTES % (AUTO) 19.7 % (1.7-9.3); NEUTROPHILS # (AUTO) 6.8 K/uL (1.8-7.7); NEUTROPHILS % (AUTO) 63.6 % (42.2-75.2); RED BLOOD CELL COUNT(AUTO) 2.32 MIL/uL (4.20-6.10); RED CELL DISTRIBUTION WIDTH 17.2 % (11.6-13.7); WHITE BLOOD COUNT (AUTO) 10.6 K/uL (4.8-10.8)
[2021-01-03 11:39] LABS: ANION GAP 9.5 (8-16); CARBON DIOXIDE 22.7 mmol/L (21-32); CREATININE 1.1 mg/dL (0.6-1.3); POTASSIUM 5.2 mmol/L (3.5-5.1)
[2021-01-03 11:43] LABS: PLATELET COUNT (AUTO) 19 K/uL (140-450)
--- NOTE | 2021-01-03 13:09 | NUR ---
SCHEDULED MEDS GIVEN AND TOLERATED WELL. UPDATED SON ON PT 'S STATUS. ALL QUESTIONS AND CONCERNS ADDRESSED.
[2021-01-03 16:26] VITALS: BP 92/49
--- NOTE | 2021-01-03 19:29 | NUR ---
all care endorsed to alyson valencia.
--- NOTE | 2021-01-03 19:30 | NUR ---
RECEIVED REPORT FROM AM NURSE. PATIENT IN BED WELL RESTED. NO SOB NOTED. BREATHING REGULAR NON LABORED. DENIES PAIN. CALL LIGHT WITHIN REACH. ALL SAFETY PRECAUTIONS ARE IN PLACE. WILL CONTINUE TO MONITOR.
[2021-01-03] MEDS ORDERED: cefTRIAXone 1,000 MG VIAL ONE (20:50)
--- NOTE | 2021-01-03 20:55 | NUR ---
DUE MEDS GIVEN PER MD ORDERED.
[2021-01-04] VITALS: BP 97/57
--- NOTE | 2021-01-04 01:30 | NUR ---
PATIENT IS SLEEPING. NO S/S OF RESPIRATORY DISTRESS. CALL LIGHT WITHIN REACH.
[2021-01-04] MEDS: MIDODRINE 5 MG TAB PO SCH ×3 (06:49→18:31)
--- NOTE | 2021-01-04 07:20 | NUR ---
RECEIVED PT FROM DILMA ORELLANA. PT IS AAOX4. SLOW SPEECH, BEDFAST. LUNG SOUNDS CTA. ON R/A. NO COUGH OR SOB NOTED. NORMAL S1S2 NOTED. SKIN JAUNDICE WITH BUE AND BLE 1+ EDEMA NOTED, SKIN AND SCLERA JAUNDICED, CDI. ABDOMEN DISTENDED. BOWEL SOUNDS ACTIVE X4 QUADS. PT APPEARS TO HAVE POOR APPETITE. DENIES N/V/D/C. DISTAL PULSES MODERATE, SKIN WARM. IV CATH TO LAC S/L. SITE WNL. DRESSING CDI. PT DENIES PAIN. CALL LIGHT WITHIN REACH, BED IN LOWEST POSITION, SIDE RAILS UP X2.
--- NOTE | 2021-01-04 07:21 | NUR ---
ENDORSED TO AM NURSE FOR CONTINUITY OF CARE. PATIENT IS IN STABLE CONDITION.
[2021-01-04 09:26] LABS: BASOPHILS % (AUTO) 0.5 % (0.0-2.0); EOSINOPHILS # (AUTO) 0.1 K/uL (0-0.4); EOSINOPHILS % (AUTO) 1.2 % (0.0-4.0); HEMATOCRIT 22.3 % (36-52); HEMOGLOBIN 7.9 g/dL (12.0-18.0); LYMPHOCYTES # (AUTO) 1.7 K/uL (2.0-11.5); MEAN CORPUSCULAR HEMOGLOBIN 37 pg (27-31); MEAN CORPUSCULAR HGB CONC 35 g/dL (33-37); MONOCYTES # (AUTO) 1.6 K/uL (0.8-1.0); NEUTROPHILS # (AUTO) 6.6 K/uL (1.8-7.7); NEUTROPHILS % (AUTO) 66.1 % (42.2-75.2); PLATELET COUNT (AUTO) 32 K/uL (140-450); RED BLOOD CELL COUNT(AUTO) 2.14 MIL/uL (4.20-6.10); RED CELL DISTRIBUTION WIDTH 16.8 % (11.6-13.7)
[2021-01-04 09:35] LABS: ANION GAP 9.7 (8-16); CARBON DIOXIDE 24.6 mmol/L (21-32); CREATININE 0.8 mg/dL (0.6-1.3); POTASSIUM 5.3 mmol/L (3.5-5.1)
[2021-01-04] MEDS: SPIRONOLACTONE 50 MG TAB PO SCH (10:14)
[2021-01-04] MEDS: ALBUMIN HUMAN 25% 100 ML IV SCH (10:15)
--- NOTE | 2021-01-04 10:29 | NUR ---
PT'S 0900 MEDS GIVEN LATE. PT'S BAR CODE WOULD NOT SCAN. SCHEDULED MEDS NOW GIVEN. PT DENIES PAIN. SON AT BEDSIDE. CALL LIGHT WITHIN REACH.
[2021-01-04 10:38] LABS: LYMPHOCYTES % (AUTO) 16.6 % (20.5-51.1)
[2021-01-04 10:39] LABS: MONOCYTES % (AUTO) 15.6 % (1.7-9.3)
[2021-01-04] MEDS ORDERED: PHYTONADIONE 10 MG in NACL 0.9% 50 ML IV SCH (11:00)
[2021-01-04 11:20] VITALS: BP 95/57
[2021-01-04 16:00] VITALS: BP 97/64
[2021-01-04] MEDS: FUROSEMIDE 40 MG TAB PO SCH (18:28)
--- NOTE | 2021-01-04 19:35 | NUR ---
RECEIVED REPORT FROM AM NURSE. PATIENT IS RESTING. NO SOB NOTED. ALL SAFETY PRECAUTIONS ARE IN PLACE. DENIES PAIN. CALL LIGHT WITHIN REACH. NO APPETITE, ATE ONLY SALAD AND PUDDING.
--- NOTE | 2021-01-04 21:01 | NUR ---
ROCEPHIN 1GM IVPB GIVEN ORDERED. CALL LIGHT WITHIN REACH.
[2021-01-05] VITALS: BP 108/62
[2021-01-05 05:56] LABS: BASOPHILS % (AUTO) 0.3 % (0.0-2.0); EOSINOPHILS # (AUTO) 0.1 K/uL (0-0.4); EOSINOPHILS % (AUTO) 0.8 % (0.0-4.0); HEMATOCRIT 21.9 % (36-52); HEMOGLOBIN 7.7 g/dL (12.0-18.0); LYMPHOCYTES # (AUTO) 1.8 K/uL (2.0-11.5); MEAN CORPUSCULAR HEMOGLOBIN 36 pg (27-31); MEAN CORPUSCULAR HGB CONC 35 g/dL (33-37); MEAN CORPUSCULAR VOLUME 103.5 fL (80-94); MONOCYTES # (AUTO) 1.4 K/uL (0.8-1.0); MONOCYTES % (AUTO) 12.4 % (1.7-9.3); NEUTROPHILS # (AUTO) 7.8 K/uL (1.8-7.7); NEUTROPHILS % (AUTO) 70.5 % (42.2-75.2); PLATELET COUNT (AUTO) 49 K/uL (140-450); RED BLOOD CELL COUNT(AUTO) 2.11 MIL/uL (4.20-6.10)
[2021-01-05 06:13] LABS: ANION GAP 10.2 (8-16); CARBON DIOXIDE 25.2 mmol/L (21-32); CREATININE 0.7 mg/dL (0.6-1.3); POTASSIUM 5.4 mmol/L (3.5-5.1)
[2021-01-05] MEDS: MIDODRINE 5 MG TAB PO SCH ×3 (06:31→19:08)
--- NOTE | 2021-01-05 06:31 | NUR ---
MIDODRINE 10 MG TABLET GIVEN BY MOUTH SCHEDULED DUE.
--- NOTE | 2021-01-05 07:30 | NUR ---
ENDORSED TO AM NURSE FOR CONTINUITY OF CARE. PATIENT IS STABLE.
--- NOTE | 2021-01-05 07:31 | NUR ---
RECEIVED PATIENT FROM LOGISTICS ASSOCIATE NURSE FOR CONTINUITY OF CARE. PATIENT IS RESTING IN BED, A/A/O X4. RESPIRATORY EVEN AND UNLABORED, ON ROOM AIR, NO SIGN OF DISTRESS NOTED. SKIN WARM, DRY, NON DIAPHORETIC, JAUNDICE NOTED ON BILATERAL EYES. IV ON RIGHT FA 22G, INTACT AND PATENT, SALINE LOCK. ABDOMEN DISTENDED, BOWEL SOUND ACTIVE TO 4 QUADRANTS. PATIENT DENIES ANY PAIN OR DISCOMFORT. ABLE TO MAKE NEED KNOWN. PLAN OF CARE DISCUSSED, PATIENT VERBALIZED UNDERSTANDING. CALL LIGHT WITHIN REACH. WILL CONTINUE TO MONITOR.
[2021-01-05 08:00] VITALS: BP 99/64
[2021-01-05] MEDS: ALBUMIN HUMAN 25% 100 ML IV SCH (08:24)
[2021-01-05] MEDS ORDERED: SODIUM ZIRCONIUM CYCLOSILICATE 10 GM POWD.PACK PO SCH (08:30)
[2021-01-05] MEDS: FUROSEMIDE 40 MG TAB PO SCH ×2 (09:45→16:45)
--- NOTE | 2021-01-05 09:45 | NUR ---
SCHEDULE MEDICATIONS GIVEN WITH EDUCATION, PATIENT VERBALIZED UNDERSTANDING. NO SIGN OF DISTRESS NOTED. PRECAUTION IN PLACE. CALL LIGHT WITHIN REACH. WILL CONTINUE TO MONITOR.
[2021-01-05] MEDS: SPIRONOLACTONE 50 MG TAB PO SCH (09:46)
[2021-01-05 09:51] LABS: PROTHROMBIN TIME 21.9 secs (10.8-13.4)
--- NOTE | 2021-01-05 11:00 | NUR ---
ROUND CHECK. PATIENT IS RESTING IN BED, AROUSABLE TO VOICE, NO SIGN OF DISTRESS NOTED. PRECAUTION IN PLACE. CALL LIGHT WITHIN REACH. WILL CONTINUE TO MONITOR.
--- NOTE | 2021-01-05 13:16 | NUR ---
SCHEDULE MEDICATIONS GIVEN WITH EDUCATION, PATIENT VERBALIZED UNDERSTANDING. NO SIGN OF DISTRESS NOTED. PRECAUTION IN PLACE. CALL LIGHT WITHIN REACH. WILL CONTINUE TO MONITOR.
--- NOTE | 2021-01-05 14:30 | NUR ---
AND US TECH AT BEDSIDE FOR PARACENTESIS. PROCEDURE EXPLAINED BY MD, PATIENT VERBALIZED UNDERSTANDING AND SIGNED CONSENT, NURSE SIGN WITNESS.
--- NOTE | 2021-01-05 14:38 | NUR ---
01/05/21 RD FOLLOW UP COMPLETED PLEASE REFER TO NUTRITION ASSESSMENT UNDER CARE ACTIVITY FOR ESTIMATED NUTRITIONAL NEEDS. 1. CONTINUE REGULAR DIET TOLERATED 2. RD PROVIDED NUTRITION EDUCATION ON CIRRHOSIS AND PROTEIN RICH FOODS 3. FNS WILL FOLLOW FOOD PREFERENCES 4. RD TO FOLLOW-UP 5-7 DAYS, LOW RISK BLOSSOM MITCHELL, VIK
--- NOTE | 2021-01-05 15:00 | NUR ---
PARACENTESIS COMPETED WITH 4.5L OUTPUT. PATIENT TOLERATED WELL. NO SIGN OF DISTRESS NOTED. CALL LIGHT WITHIN REACH. WILL CONTINUE TO MONITOR.
[2021-01-05] MEDS ORDERED: SPIR50TA PO ×2 (15:24→15:29)
[2021-01-05] MEDS ORDERED: PRO5 PO (15:24)
[2021-01-05] MEDS ORDERED: LEVO750T51 PO (15:24)
[2021-01-05] MEDS ORDERED: FURO40TA9 PO (15:24)
[2021-01-05] MEDS ORDERED: SODIUM ZIRCONIUM CYCLOSILICATE 10 GM POWD.PACK PO ONE (15:30)
[2021-01-05 16:00] VITALS: BP 93/54
--- NOTE | 2021-01-05 16:45 | NUR ---
HOLD LASIX DUE TO DECREASE BLOOD PRESSURE, BP 93/54, HR 73.
--- NOTE | 2021-01-05 19:21 | NUR ---
ENDORSED PATIENT TO ROLL SCALE WORKER NURSE FOR CONTINUITY OF CARE. PATIENT IS STABLE.
--- NOTE | 2021-01-05 20:43 | NUR ---
PT WAS DISCHARGED. DISCHARGE PAPERS AND EDUCATION GIVEN TO PATIENT AND SON AT BEDSIDE. PT TOOK ALL PERSONAL BELONGINGS WITH HIM, IDENTIFICATION WRIST BAND REMOVED, IV SITE REMOVED, CANNULA INTACT. TOOK PATIENTS BP WHICH WAS 93/58, CALLED TO CONFIRM IF HE WAS OKAY TO DISCHARGE, HE SAID IT WAS OKAY. PATIENT LEFT VIA WHEEL CHAIR WITH SON.
== END 2021-01-05 20:45 | disposition home or self-care (01) | DRG 720 ==
LOC: MED 08:13 → MTU 12:20
PROVIDERS: ADMIT Family Medicine; ATTEND Family Medicine
PROC: 30233K1 Transfusion of Nonautologous Frozen Plasma into Peripheral Vein, Percutaneous Approach (ICD-10-PCS; principal; 2020-12-24)
PROC: 0W9G3ZZ Drainage of Peritoneal Cavity, Percutaneous Approach (ICD-10-PCS; 2020-12-24)
PROC: 0W9G3ZZ Drainage of Peritoneal Cavity, Percutaneous Approach (ICD-10-PCS; 2020-12-26)
PROC: 30233N1 Transfusion of Nonautologous Red Blood Cells into Peripheral Vein, Percutaneous Approach (ICD-10-PCS; 2020-12-30)
PROC: 0W9G3ZZ Drainage of Peritoneal Cavity, Percutaneous Approach (ICD-10-PCS; 2021-01-05)
DX: A41.59 Other Gram-negative sepsis (principal); N17.0 Acute kidney failure with tubular necrosis; E43 Unspecified severe protein-calorie malnutrition; D68.9 Coagulation defect, unspecified; D69.6 Thrombocytopenia, unspecified; K70.31 Alcoholic cirrhosis of liver with ascites; D63.8 Anemia in other chronic diseases classified elsewhere; E87.1 Hypo-osmolality and hyponatremia; K76.6 Portal hypertension; E80.6 Other disorders of bilirubin metabolism; K72.90 Hepatic failure, unspecified without coma; F10.10 Alcohol abuse, uncomplicated; Z20.822 Contact with and (suspected) exposure to COVID-19; Z79.899 Other long term (current) drug therapy; Z68.23 Body mass index [BMI] 23.0-23.9, adult; Z81.1 Family history of alcohol abuse and dependence; Z82.49 Family history of ischemic heart disease and other diseases of the circulatory system; Q27.33 Arteriovenous malformation of digestive system vessel
CPT/HCPCS: 36415; 49083; 70450; 71045; 76705; 80048; 80053; 80076; 80202; 80305; 81003; 82140; 82150; 82945; 83036; 83615; 83690; 83735; 83880; 84100; 84155; 84157; 84300; 84436; 84439; 84443; 84479; 84484; 85025; 85610; 85730; 86886; 86900; 86901; 86920; 87040; 87070; 87075; 87086; 87205; 89051; 93005; 97116; 97163-GP; 97530; 99285; J0610; J0696; J2001; J2354; J2405; J2543; J3370; J3430; J3490; J7060; P9016; P9017; P9041; P9046; Q0092